=== PATIENT | male | born 1950 | race Caucasian/White ===

== ENCOUNTER → 2016-08-07 | Outpatient (CLI) | payer OTHER ==
[~2016-08-07] MED LIST: CRD200 PO; DILT240C57 PO; GLCSR/500 PO; INSDGI SC; LISI20TA55 PO; LSN/2025 PO; OXYC5TAB PO; PRVC/40 PO; WARF3TAB PO; WARF5TAB90 PO
== END ==
LOC: C.LAB 09:11
PROVIDERS: ATTEND Family Medicine
DX: C34.90 Malignant neoplasm of unspecified part of unspecified bronchus or lung (principal)

== ENCOUNTER → 2016-10-03 | Outpatient (CLI) | payer OTHER ==
--- NOTE | 2016-10-03 13:35 | DIAGNOSTIC IMAGING REPORT ---
PET/CT CLINICAL HISTORY: Lung cancer. COMPARISON STUDY: Chest CT dated 12/29/[address] dated 12/03/2015. TECHNIQUE: One hour following the IV administration of 11.62 mCi of F-18 FDG, PET/CT examination was performed from the orbital meatal line through the bony pelvis. Noncontrast CT is performed for the purposes of anatomic correlation and attenuation correction. Note that this does not reflect a diagnostic CT examination. Images were reviewed on a separate [employer] independent workstation. Fused images were obtained. Standard uptake values reported are maximum values within the region of interest expressed in gm/mL. FINDINGS: PET FINDINGS: Head and neck: There is expected physiologic activity within the visualized brain parenchyma at the skull base and the salivary glands. Thorax: Evaluation of the thorax demonstrates expected physiologic myocardial activity. No FDG avid pulmonary lesion is identified. There is no evidence of FDG mediastinal or hilar lymphadenopathy. Abdomen and pelvis: There is expected activity within the liver, spleen, kidneys, renal collecting system, and bladder. Low-level bowel activity is likely within physical limits. 2 left adrenal nodules are unchanged and measure up to 2.[address] criteria for a fat-containing adenoma. This shows only low level FDG activity with a maximum velocity of 2.0. Unenhanced CT images: Right temporal encephalomalacia suggests remote intracranial insult. The paranasal sinuses are clear as imaged. The mastoid air cells appear well-pneumatized. The bony orbits are grossly intact. Orbital contents are normal as imaged noting bilateral ocular lens implants. A punctate sialolith is noted in the left parotid gland. The salivary and thyroid glands are otherwise normal as visualized. There is atherosclerotic calcification of the thoracic aorta which is normal in caliber. The heart is mildly enlarged and without pericardial effusion. The coronary arteries are calcified. No axillary lymphadenopathy is seen. Emphysema is noted. There are postoperative changes from right lower lobe pulmonary resection. Trace pleural fluid is seen at the right lung base. No airspace consolidation is identified typical for pneumonia. Scarring is present in the right posterior lung. A calcified granuloma is seen at the left lung base. No concerning pulmonary lesion is seen. The gallbladder surgically absent. There is mild intrahepatic biliary ductal dilatation and pneumobilia. The unenhanced liver is otherwise grossly normal in appearance. The unenhanced spleen, pancreas, and right adrenal gland are grossly normal. The kidneys demonstrate cortical atrophy and are without hydronephrosis. There is advanced atherosclerotic calcification of the abdominal aorta. Findings suggest history of aortic bypass. A fat-containing umbilical hernia contains nonobstructed loops of small bowel. There is mild dilatation of the proximal small bowel loops suggesting low-grade obstruction. These loops measure up to 3.0 cm in diameter. Moderate colonic fecal retention is observed. There are additional fat-containing ventral hernia is identified. There is no abdominal, pelvic, or inguinal lymphadenopathy. The bladder, prostate, and seminal vesicles are normal as visualized. Skeletal structures are osteopenic. No lytic or blastic lesions are seen. Mild degenerative changes noted throughout the thoracic spine. Postoperative changes are noted in the right sided ribs. IMPRESSION: 1. Cardiomegaly and emphysema with postoperative changes from right lower lobe pulmonary resection as detailed above. 2. There is no evidence of recurrent or metastatic disease. 3. Trace pleural fluid at the right lung base is likely on a postoperative basis. 4. Umbilical hernia contains nonobstructed loops of small bowel. There is mild dilatation of the upstream small bowel loops suggesting some degree of low-grade obstruction. Clinical correlation will be required. 5. There is right temporal lobe encephalomalacia, likely related to a remote insult. 6. 2 left adrenal nodules are unchanged and need CT criteria for fat-containing adenomas. The larger nodule is mildly FDG avid which is of doubtful significance. 7. Additional changes as above. Electronically signed by: Abundio Mcpherson M.D. 10/03/2016 1:34 PM Dictated Date/Time: 10/03/2016 1:16 PM
== END | disposition home or self-care (01) ==
LOC: C.PET 10:13
PROVIDERS: ATTEND Internal Medicine
DX: C34.90 Malignant neoplasm of unspecified part of unspecified bronchus or lung (principal); I51.7 Cardiomegaly; J43.9 Emphysema, unspecified; K42.9 Umbilical hernia without obstruction or gangrene

== ENCOUNTER 2017-10-21 19:21 | Inpatient (IN) | payer OTHER ==
[~2017-10-21] VITALS: Ht 193 cm; Wt 119.4 kg
[~2017-10-21 19:21] MED LIST changes: +ASPI81TA28 PO; +CEPH500C2 PO; -CRD200 PO; +CYAN10005 PO; +GEMF600T PO; -INSDGI SC; +INSU1INJ SC; -PRVC/40 PO
[2017-10-21] MEDS ORDERED: VANCOMYCIN IV 2,000 MG in SODIUM CHLORIDE 0.9% 500ML 500 ML IV STA (19:28)
[2017-10-21] MEDS ORDERED: CEFTRIAXONE SOD INJ 1 GM ADDVIAL IV STA (19:28)
[2017-10-21] MEDS ORDERED: VANCOMYCIN CONSULT ACTIVE PRN (19:30)
--- NOTE | 2017-10-21 19:34 | EMERGENCY ROOM VISIT NOTE ---
History Report prepared by Alpesh: Delmar Jean Baptiste Under the Supervision of: Dr. Nathanael Bardales M.D. First contact with patient: 19:24 Stated Complaint: LEG SWELLING History of Present Illness The patient is a 66 year old male who presents to the Emergency Room for evaluation of left foot swelling. Rapid swelling over last few days of left foot with increasing redness, drainage and burning sensation. Notes started about 1 month ago but worse last few stovall. History of diabetes with some lower BSG recently. Associated with feeling a bit weak and tired. No fevers, nausea , vomiting, diarrhea, syncope, chest pain, shob, headache, other rashes, calf pain/swelling nor other symptoms. Unable to ambulate due to foot infection. Arrives via EMS. Nothing makes better nor worse. Source of History: patient Onset: 1 month ago Position: leg (left) Quality: burning Timing: worsening Associated Symptoms: + chills, No LOC, No fevers, No nausea, No vomiting, No diarrhea Review of Systems See HPI for pertinent positives & negatives. A total of 10 systems reviewed and were otherwise negative. Past Medical & Surgical Medical Problems: (1) Anemia (2) Atrial flutter (3) Diabetes (4) Hepatitis C (5) High blood pressure (6) Jaundice (7) Lung mass Surgical Problems: (1) Hx of appendectomy (2) Hx of cholecystectomy Family History Patient reports no known family medical history. Social History Smoking Status: Former Smoker Alcohol Use: none Drug Use: marijuana Marital Status: single Housing Status: other (long-term) Occupation Status: other Current/Historical Medications Scheduled Aspirin (Aspirin Ec), 81 MG PO DAILY Cyanocobalamin (Vitamin B-12), 1,000 MCG PO DAILY Diltiazem Hcl (Cardizem), 120 MG PO BID Gemfibrozil (Lopid), 600 MG PO DAILY Insulin Isophan/Regular (Humulin 70/30), 34 UNITS SC QPM Insulin Isophan/Regular (Humulin 70/30), 40 UNITS SC QAM Lisinopril/Hctz (Prinzide 20-25MG), 1 TAB PO HS Metformin Hcl (Glucophage), 1,000 MG PO BID Warfarin Sodium (Coumadin), 5 MG PO HS Warfarin Sodium (Coumadin), 3 MG PO HS Scheduled PRN Polyvinyl Alcohol (Artificial Tears), 1 DROP OPL QID PRN for Dryness Allergies Coded Allergies: Povidone Iodine (Verified Allergy, Severe, RASH, 04/27/16) Adhesives (Verified Adverse Reaction, Unknown, RASH, 04/20/16) Physical Exam Vital Signs Date Time Temp Pulse Resp B/P (MAP) Pulse Ox O2 Delivery O2 Flow Rate FiO2 10/21/17 23:00 95 18 121/64 94 Room Air 10/21/17 21:00 75 118/43 93 Room Air 10/21/17 19:34 36.7 86 96 Physical Exam GENERAL: Patient is in long-term garb, well appearing and in no acute distress. EYES: No scleral icterus, unremarkable pupils. ENT: Mucous membranes moist, no nasal congestion. NECK: No masses appreciated, no meningismus, trachea is midline. RESPIRATORY: No dyspnea. Clear to auscultation and equal bilaterally. No wheeze , no rhonchi. CARDIOVASCULAR: Regular rate and rhythm. No murmurs, rubs, gallops appreciated. GASTROINTESTINAL: Abdomen soft, nontender, no peritonitis. Bowel sounds positive. No masses appreciated. BACK: No midline tenderness, no CVA tenderness EXTREMITIES: Wound of left foot with swelling and erythema. Minimal sensation of left foot (chronic). White decreased vascularized area of distal pad with sloughing of skin and ulceration to base of toes. Weeping open gangrenous wounds with malodorous stench. Normal motion all extremities, no cyanosis, no edema. NEUROLOGIC: Alert and oriented, no acute motor or sensory deficits, no focal weakness, cranial nerves grossly intact. SKIN: No rash, no jaundice, no diaphoresis. Medical Decision & Procedures ER Provider Diagnostic Interpretation: Radiology results and stated below per my review and radiologist interpretation: SINGLE VIEW CHEST CLINICAL HISTORY: Foot infection. Weakness and chills. FINDINGS: An AP, portable, upright chest radiograph is compared to study dated 04/28/2016. Correlation is made with PET/CT dated 10/03/2016. The examination is severely degraded by portable technique , large body habitus, and patient rotation. The heart is enlarged and there is atherosclerotic calcification of the thoracic aorta. The pulmonary vasculature is noncongested. Emphysema and chronic interstitial thickening are similar to previous. Postoperative change and volume loss are consistent with a right-sided pulmonary resection. No airspace consolidation or pleural effusion is identified. No pneumothorax is seen. The skeletal structures are osteopenic. The bony thorax is grossly intact. IMPRESSION: 1. No acute cardiopulmonary abnormality. 2. Cardiomegaly, emphysema, and postoperative change from right-sided pulmonary resection as above. Electronically signed by: Abundio Mcpherson M.D. 10/21/2017 8:28 PM Dictated Date/Time: 10/21/2017 8:26 PM LEFT FOOT 3 VIEWS CLINICAL HISTORY: Foot infection. FINDINGS: 3 portable views of the left foot are obtained. No prior studies are available for comparison at the time of dictation. The skeletal structures are osteopenic. No fracture is seen. There is erosive change and cortical destruction/fragmentation seen involving the head and distal shaft of the first proximal phalanx. Erosive change is also suggested at the base of the first distal phalanx. Overlying soft tissue edema is noted in the appearance is highly concerning for osteomyelitis. Erosive change is also suggested in the head of the fourth proximal phalanx and the fourth middle phalanx with small for safe cortical disruption. There are small dorsal and plantar calcaneal enthesophytes. Spurring is seen along the dorsal aspect of the talus. Diffuse soft tissue edema is present throughout the foot. There is atherosclerotic calcification of the regional arteries. No radiodense foreign body is identified. IMPRESSION: 1. Findings are consistent with osteomyelitis involving the distal aspect of the first proximal phalanx, and also likely the base of the first distal phalanx. 2. Diffuse soft tissue edema is consistent with cellulitis. This is greatest in the first toe. 3. Mild erosive change with foci of cortical disruption are also suggested involving the fourth proximal and middle phalanges as above. This may also represent osteomyelitis. Electronically signed by: Abundio Mcpherson M.D. 10/21/2017 9:08 PM Dictated Date/Time: 10/21/2017 9:04 PM Laboratory Results 10/21/17 19:54 Red Blood Count 3.14, Mean Corpuscular Volume 87.6, Mean Corpuscular Hemoglobin 30.6, Mean Corpuscular Hemoglobin Concent 34.9, Mean Platelet Volume 10.0, Neutrophils (%) (Auto) 80.4, Lymphocytes (%) (Auto) 10.4, Monocytes (%) (Auto) 6.9, Eosinophils (%) (Auto) 1.8, Basophils (%) (Auto) 0.2, Neutrophils # (Auto) 10.07, Lymphocytes # (Auto) 1.30, Monocytes # (Auto) 0.86, Eosinophils # (Auto) 0.22, Basophils # (Auto) 0.02 10/21/17 19:54 Test 10/21/17 19:54 10/21/17 19:56 White Blood Count 12.51 K/uL (4.8-10.8) Red Blood Count 3.14 M/uL (4.7-6.1) Hemoglobin 9.6 g/dL (14.0-18.0) Hematocrit 27.5 % (42-52) Mean Corpuscular Volume 87.6 fL (80-100) Mean Corpuscular Hemoglobin 30.6 pg (25-34) Mean Corpuscular Hemoglobin Concent 34.9 g/dl (32-36) Platelet Count 415 K/uL (130-400) Mean Platelet Volume 10.0 fL (7.4-10.4) Neutrophils (%) (Auto) 80.4 % Lymphocytes (%) (Auto) 10.4 % Monocytes (%) (Auto) 6.9 % Eosinophils (%) (Auto) 1.8 % Basophils (%) (Auto) 0.2 % Neutrophils # (Auto) 10.07 K/uL (1.4-6.5) Lymphocytes # (Auto) 1.30 K/uL (1.2-3.4) Monocytes # (Auto) 0.86 K/uL (0.11-0.59) Eosinophils # (Auto) 0.22 K/uL (0-0.5) Basophils # (Auto) 0.02 K/uL (0-0.2) RDW Standard Deviation 43.7 fL (36.4-46.3) RDW Coefficient of Variation 13.5 % (11.5-14.5) Immature Granulocyte % (Auto) 0.3 % Immature Granulocyte # (Auto) 0.04 K/uL (0.00-0.02) Prothrombin Time 10.7 SECONDS (9.0-12.0) Prothromb Time International Ratio 1.0 (0.9-1.1) Activated Partial Thromboplast Time 30.2 SECONDS (21.0-31.0) Partial Thromboplastin Ratio 1.2 Anion Gap 10.0 mmol/L (3-11) Estimated GFR () 43.8 Estimated GFR (Non- 37.8 BUN/Creatinine Ratio 20.6 (10-20) Calcium Level 9.6 mg/dl (8.5-10.1) C-Reactive Protein 17.90 mg/dl (0-0.29) Bedside Lactic Acid Venous 0.97 mmol/L (0.90-1.70) Laboratory results as reviewed by me. Medications Administered Medications (Trade) Dose Ordered Sig/Eros Route Start Time Stop Time Status Last Admin Dose Admin Vancomycin HCl 2000 mg/Sodium Chloride 540 ml @ 200 mls/hr ONE STAT IV 10/21/17 19:28 10/21/17 22:09 DC 10/21/17 20:33 200 MLS/HR Ceftriaxone Sodium (Rocephin Inj) 1 gm NOW STAT IV 10/21/17 19:28 10/21/17 19:31 DC 10/21/17 20:13 1 GM ECG Per My Interpretation Indication: other (left foot infection) Rate (beats per minute): 80 Rhythm: normal sinus Findings: PVC (occasional), no acute ischemic change, other (QTc of 445) ED Course 1923: The patient was evaluated in room B2. A complete history and physical exam was performed. 2155: Discussed the patient's case with Dr. Meraz. The patient will be evaluated for further treatment and disposition. 2199: Upon reevaluation, the patient is resting. Discussed results and treatment plan with the patient. He verbalized understanding and agreement with the treatment plan. The patient will be evaluated for further management. Medical Decision 66 yr old male arrives from long-term for evaluation of left foot infection. Clearly osteo of toes and infected foot with sloughing of skin. He is not overtly septic but is clearly in need of admission and IV abx and likely surgical removal of his toes and possibly foot. Of note Hgb has dropped which hospitalist was able to review that patient has had some blood in stool and they will work this up further. He was given broad spectrum abx for foot wound as diabetic, from care home and previous loss of leg from infections. Medication Reconcilliation Current Medication List: was personally reviewed by me Blood Pressure Screening Patient's blood pressure: Low blood pressure Blood pressure disposition: Did not require urgent referral Consults Time Called: 2149 Consulting Physician: Dr. Meraz Returned Call: [phone] Discussed the patient's case. The patient will be evaluated for further treatment and disposition. Impression Primary Impression: Osteomyelitis of ankle or foot, left, acute Additional Impression: Cellulitis Scribe Attestation The scribe's documentation has been prepared under my direction and personally reviewed by me in its entirety. I confirm that the note above accurately reflects all work, treatment, procedures, and medical decision making performed by me. Departure Information Dispostion Being Evaluated By Hospitalist Referrals Masha PALACIOS (PCP) Problem Qualifiers
--- NOTE | 2017-10-21 20:29 | DIAGNOSTIC IMAGING REPORT ---
SINGLE VIEW CHEST CLINICAL HISTORY: Foot infection. Weakness and chills. FINDINGS: An AP, portable, upright chest radiograph is compared to study dated 04/28/2016. Correlation is made with PET/CT dated 10/03/2016. The examination is severely degraded by portable technique , large body habitus, and patient rotation. The heart is enlarged and there is atherosclerotic calcification of the thoracic aorta. The pulmonary vasculature is noncongested. Emphysema and chronic interstitial thickening are similar to previous. Postoperative change and volume loss are consistent with a right-sided pulmonary resection. No airspace consolidation or pleural effusion is identified. No pneumothorax is seen. The skeletal structures are osteopenic. The bony thorax is grossly intact. IMPRESSION: 1. No acute cardiopulmonary abnormality. 2. Cardiomegaly, emphysema, and postoperative change from right-sided pulmonary resection as above. Electronically signed by: Abundio Mcpherson M.D. 10/21/2017 8:28 PM Dictated Date/Time: 10/21/2017 8:26 PM
[2017-10-21 20:32] LABS: BASO % 0.2 %; BASO ABS # 0.02 K/uL (0-0.2); EOS % 1.8 %; EOS ABS # 0.22 K/uL (0-0.5); HEMATOCRIT 27.5 % (42-52); HEMOGLOBIN 9.6 g/dL (14.0-18.0); IG# 0.04 K/uL (0.00-0.02); LYMPH % 10.4 %; MEAN CELL VOLUME 87.6 fL (80-100); MEAN CORPUSCULAR HEMOGLOBIN 30.6 pg (25-34); MEAN CORPUSCULAR HGB CONC 34.9 g/dl (32-36); MONO % 6.9 %; MONO ABS # 0.86 K/uL (0.11-0.59); NEUT % 80.4 %; NEUT ABS # 10.07 K/uL (1.4-6.5); PLATELET COUNT 415 K/uL (130-400); RED CELL DISTRIBUTION WIDTH CV 13.5 % (11.5-14.5); RED CELL DISTRIBUTION WIDTH SD 43.7 fL (36.4-46.3); WHITE BLOOD COUNT 12.51 K/uL (4.8-10.8)
[2017-10-21 20:50] LABS: PTT PATIENT 30.2 SECONDS (21.0-31.0)
[2017-10-21 20:55] LABS: BLOOD UREA NITROGEN 37 mg/dl (7-18); CALCIUM 9.6 mg/dl (8.5-10.1); CARBON DIOXIDE 26 mmol/L (21-32); GLUCOSE 147 mg/dl (70-99); SODIUM 133 mmol/L (136-145)
[2017-10-21 21:04] LABS: POTASSIUM 4.2 mmol/L (3.5-5.1)
--- NOTE | 2017-10-21 21:09 | DIAGNOSTIC IMAGING REPORT ---
LEFT FOOT 3 VIEWS CLINICAL HISTORY: Foot infection. FINDINGS: 3 portable views of the left foot are obtained. No prior studies are available for comparison at the time of dictation. The skeletal structures are osteopenic. No fracture is seen. There is erosive change and cortical destruction/fragmentation seen involving the head and distal shaft of the first proximal phalanx. Erosive change is also suggested at the base of the first distal phalanx. Overlying soft tissue edema is noted in the appearance is highly concerning for osteomyelitis. Erosive change is also suggested in the head of the fourth proximal phalanx and the fourth middle phalanx with small for safe cortical disruption. There are small dorsal and plantar calcaneal enthesophytes. Spurring is seen along the dorsal aspect of the talus. Diffuse soft tissue edema is present throughout the foot. There is atherosclerotic calcification of the regional arteries. No radiodense foreign body is identified. IMPRESSION: 1. Findings are consistent with osteomyelitis involving the distal aspect of the first proximal phalanx, and also likely the base of the first distal phalanx. 2. Diffuse soft tissue edema is consistent with cellulitis. This is greatest in the first toe. 3. Mild erosive change with foci of cortical disruption are also suggested involving the fourth proximal and middle phalanges as above. This may also represent osteomyelitis. Electronically signed by: Abundio Mcpherson M.D. 10/21/2017 9:08 PM Dictated Date/Time: 10/21/2017 9:04 PM
[2017-10-21] MEDS ORDERED: DILT120T8 PO (22:29)
[2017-10-21] MEDS ORDERED: POLY99.0 OPL (22:29)
[2017-10-21] MEDS ORDERED: INSU1INJ SC (22:29)
[2017-10-21] MEDS ORDERED: METF-384 PO (22:29)
[2017-10-21] MEDS ORDERED: ONDANSETRON INJ 2 MG/ML 2 ML VIAL IV PRN (22:45)
[2017-10-21] MEDS ORDERED: POLYETHYLENE (MIRALAX) 17 GM PACK PO PRN (22:45)
[2017-10-21] MEDS ORDERED: ACETAMINOPHEN 325 MG TAB PO PRN (22:45)
[2017-10-21] MEDS ORDERED: ALUMINUM/MAGNESIUM/SIMETH (MAALOX MAX) 30 ML UDC PO PRN (22:45)
[2017-10-21] MEDS ORDERED: ARTIFICIAL TEARS OP SOLN OPL PRN (22:45)
[2017-10-21] MEDS ORDERED: HEPARIN SOD 5000 UNIT/0.5 ML CARP SQ SCH (22:45)
[2017-10-21] MEDS ORDERED: ZOLPIDEM TARTRATE 5 MG TAB PO PRN (22:45)
[2017-10-21] MEDS ORDERED: MAGNESIUM HYDROXIDE SUSP 30 ML UDC PO PRN (22:45)
--- NOTE | 2017-10-21 23:50 | History and Physical ---
History & Physical Date & Time of Service: Oct 21, 2017 at 22:34 Chief Complaint: Leg Swelling Primary Care Physician: Masha PALACIOS History of Present Illness Source: patient, hospital records 66 y/o M complex medical history including HTN, HPL, A flutter, DM, PAD, R BKA, chronic LLE ulcers. Presenting from a local [facility] with worsening LLE cellulitis and a related foul odor, at the behest of the [facility] nursing staff. He is a resident of a correctional facility and had last followed up at a wound clinic 10/09. He denies a fever or excessive pain, however, his sensation is impaired peripherally. Initial labs are notable for leukocytosis, anemia and MYNOR. Imaging is consistent with osteomyelitis involving the 1st and 4th phalanges with adjacent soft tissue cellulitis. On further questioning, the pt states that he has had both dark and bright red blood with every BM for approximately one month. He denies SOB, lightheadedness , diarrhea or abdominal pain. 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 Not aware of any pertinent family history Social History Quit smoking 18 years ago - resides in an incarceration facility Smoking Status: Former Smoker Drug Use: marijuana Marital Status: single Housing status: other Occupational Status: other Allergies Coded Allergies: Povidone Iodine (Verified Allergy, Severe, RASH, 04/27/16) Adhesives (Verified Adverse Reaction, Unknown, RASH, 04/20/16) Home Medications Scheduled Aspirin (Aspirin Ec), 81 MG PO DAILY Cyanocobalamin (Vitamin B-12), 1,000 MCG PO DAILY Diltiazem Hcl (Cardizem), 120 MG PO BID Gemfibrozil (Lopid), 600 MG PO DAILY Insulin Isophan/Regular (Humulin 70/30), 34 UNITS SC QPM Insulin Isophan/Regular (Humulin 70/30), 40 UNITS SC QAM Lisinopril/Hctz (Prinzide 20-25MG), 1 TAB PO HS Metformin Hcl (Glucophage), 1,000 MG PO BID Warfarin Sodium (Coumadin), 5 MG PO HS Warfarin Sodium (Coumadin), 3 MG PO HS Scheduled PRN Polyvinyl Alcohol (Artificial Tears), 1 DROP OPL QID PRN for Dryness Review of Systems Constitutional: No fever, No chills, No sweats Eyes: No worsening of vision ENT: No hearing loss, No unusual epistaxis Respiratory: No cough, No sputum, No wheezing Cardiovascular: No chest pain, No orthopnea, No PND Abdomen: + GI bleeding, No pain, No nausea, No vomiting Musculoskeletal: No joint pain Genitourinary - Male: No hematuria, No dysuria Neurologic: No memory loss, No paralysis, No weakness Psychiatric: No depression symptoms Endocrine: No fatigue Hematologic / Lymphatic: + abnormal bleeding/bruising Integumentary: + rash, + new/changing skin lesions Physical Exam Vital Signs Date Time Temp Pulse Resp B/P (MAP) Pulse Ox O2 Delivery O2 Flow Rate FiO2 10/21/17 21:00 75 118/43 93 Room Air 10/21/17 19:34 36.7 86 96 General Appearance: WD/WN, no apparent distress Head: normocephalic Eyes: normal inspection ENT: normal ENT inspection, pharynx normal Neck: supple, no JVD Respiratory/Chest: chest non-tender, lungs clear, normal breath sounds Cardiovascular: regular rate, rhythm, no edema Abdomen/GI: normal bowel sounds, non tender, soft Back: normal inspection, no CVA tenderness Extremities/Musculoskelatal: + pertinent finding (R BKA - LLE erythema, skin sloughing, deep wounds over mid and 1st toes) 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, no motor/sensory deficits, alert, oriented x 3 Skin: + pertinent finding (LLE erythema, skin sloughing, deep wounds over mid and 1st toes) Diagnostics Laboratory Results Results Past 24 Hours Test 10/21/17 19:54 10/21/17 19:56 Range/Units White Blood Count 12.51 4.8-10.8 K/uL Red Blood Count 3.14 4.7-6.1 M/uL Hemoglobin 9.6 14.0-18.0 g/dL Hematocrit 27.5 42-52 % Mean Corpuscular Volume 87.6 80-100 fL Mean Corpuscular Hemoglobin 30.6 25-34 pg Mean Corpuscular Hemoglobin Concent 34.9 32-36 g/dl Platelet Count 415 130-400 K/uL Mean Platelet Volume 10.0 7.4-10.4 fL Neutrophils (%) (Auto) 80.4 % Lymphocytes (%) (Auto) 10.4 % Monocytes (%) (Auto) 6.9 % Eosinophils (%) (Auto) 1.8 % Basophils (%) (Auto) 0.2 % Neutrophils # (Auto) 10.07 1.4-6.5 K/uL Lymphocytes # (Auto) 1.30 1.2-3.4 K/uL Monocytes # (Auto) 0.86 0.11-0.59 K/uL Eosinophils # (Auto) 0.22 0-0.5 K/uL Basophils # (Auto) 0.02 0-0.2 K/uL RDW Standard Deviation 43.7 36.4-46.3 fL RDW Coefficient of Variation 13.5 11.5-14.5 % Immature Granulocyte % (Auto) 0.3 % Immature Granulocyte # (Auto) 0.04 0.00-0.02 K/uL Prothrombin Time 10.7 9.0-12.0 SECONDS Prothromb Time International Ratio 1.0 0.9-1.1 Activated Partial Thromboplast Time 30.2 21.0-31.0 SECONDS Partial Thromboplastin Ratio 1.2 Sodium Level 133 136-145 mmol/L Potassium Level 4.2 3.5-5.1 mmol/L Chloride Level 97 98-107 mmol/L Carbon Dioxide Level 26 21-32 mmol/L Anion Gap 10.0 3-11 mmol/L Blood Urea Nitrogen 37 7-18 mg/dl Creatinine 1.80 0.60-1.40 mg/dl Estimated GFR () 43.8 Estimated GFR (Non- 37.8 BUN/Creatinine Ratio 20.6 10-20 Random Glucose 147 70-99 mg/dl Calcium Level 9.6 8.5-10.1 mg/dl C-Reactive Protein 17.90 0-0.29 mg/dl Bedside Lactic Acid Venous 0.97 0.90-1.70 mmol/L Microbiology Results 10/21/17 Blood Culture, Received Pending 4/9/18 Blood Culture, Received Pending Diagnostic Radiology XR foot: 1. Findings are consistent with osteomyelitis involving the distal aspect of the first proximal phalanx, and also likely the base of the first distal phalanx. 2. Diffuse soft tissue edema is consistent with cellulitis. This is greatest in the first toe. 3. Mild erosive change with foci of cortical disruption are also suggested involving the fourth proximal and middle phalanges as above. This may also represent osteomyelitis. EKG Sinus, PACs Impression Assessment and Plan 66 y/o M complex medical history including HTN, HPL, A flutter, DM, PAD, R BKA, chronic LLE ulcers. Presenting from a local [facility] with worsening LLE cellulitis and a related foul odor, at the [facility]hest of the [facility]. He is a resident of a correctional facility and had last followed up at a wound clinic 10/09. He denies a fever or excessive pain, however, his sensation is impaired peripherally. Initial labs are notable for leukocytosis, anemia and MYNOR. Imaging is consistent with osteomyelitis involving the 1st and 4th phalanges with adjacent soft tissue cellulitis. On further questioning, the pt states that he has had both dark and bright red blood with every BM for approximately one month. 1) Osteomyelitis and cellulitis of distal LLE - the pt will be placed on Cefepime and Vancomycin pending culture results and evaluation by the orthopedic service. There appears to be at least one area of severe bone erosion which may require surgical intervention and he may indeed require amputation or partial amputation of the involved phalanges. 2) Anemia - admits to [facility] bleed for approximately one month. We will trend Hb, guaiac stool and consult GI. Transfusion consent obtained on admission. ASA and Coumadin are held - it is noted that his INR was 1.0 on arrival and he had not complied with Coumadin for a few weeks. 3) MYNOR - last available lab dates to 01/2017 and reveals normal renal function. We will provide IVF and trend BMP. May need a nephrology consult if no improvement is observed. 4) DM - placed on a SS 5) Paroxysmal flutter - Cont Diltiazem - has not complied with Coumadin which has been held regardless due to bleeding 6) HTN - HCTZ/Lisin held due to MYNOR - PRN Hydralazine provided 7) HPL - Lopid held as he is on a clear diet 8) Due to anemia and MYNOR, the pt cannot be considered optimized for surgery at present. Full code - Chem prophylaxis held due to anemia Total time for this admit including review of labs, meds, imaging, records - discussion with pt and ER attending - 45 min Resuscitation Status VTE Prophylaxis Will order VTE Prophylaxis: No Reason for no VTE drug order: Contraindicated Reason no Mechanical VTE Order: Contraindicated
[2017-10-22] MEDS ORDERED: DEXTROSE 50% 50 ML SYR IV PRN (00:15)
[2017-10-22] MEDS ORDERED: GLUCAGON FOR INJ 1 MG VIAL SQ PRN (00:15)
[2017-10-22] MEDS ORDERED: GLUCOSE 40% GEL 15 GM TUBE PO PRN (00:15)
[2017-10-22] MEDS ORDERED: GLUCOSE 10 TABS/TUBE PO PRN (00:15)
[2017-10-22] MEDS ORDERED: VANCOMYCIN CONSULT ACTIVE PRN (00:15)
[2017-10-22 00:50] VITALS: BP 156/70; PULSE 108; TEMP 36.8; O2SAT 96
[2017-10-22 01:00] VITALS: BMI 30.4
[2017-10-22] MEDS ORDERED: PATIENT'S HEIGHT AND/OR WEIGHT NEEDED SCH (01:00)
[2017-10-22] MEDS: SODIUM CHLORIDE 0.9% 1000ML 1,000 ML IV SCH ×2 (01:18→07:32)
[2017-10-22] MEDS ORDERED: NURSING VERBAL MED ORDER ONE (01:30)
[2017-10-22] MEDS: CEFEPIME IV 1,000 MG in SYRINGE 0 ML IV SCH ×3 (05:56→21:26)
[2017-10-22] MEDS: INSULIN ASPART 100 UNITS/ML 3 ML PEN SC SCH ×3 (05:59→18:26)
[2017-10-22] MEDS ORDERED: INSULIN ASPART 100 UNITS/ML 3 ML PEN SC SCH (07:00)
[2017-10-22 07:35] VITALS: BP 145/81; PULSE 106; TEMP 37; O2SAT 97
[2017-10-22 07:43] LABS: CALCIUM 9.7 mg/dl (8.5-10.1); CREATININE 1.52 mg/dl (0.60-1.40); POTASSIUM 3.9 mmol/L (3.5-5.1)
[2017-10-22] MEDS ORDERED: ASPIRIN 81 MG ECTAB PO SCH (09:00)
[2017-10-22] MEDS ORDERED: VANCOMYCIN IV 1,000 MG in SODIUM CHLORIDE 0.9% 250ML 250 ML IV SCH (09:00)
[2017-10-22] MEDS ORDERED: GEMFIBROZIL 600 MG TAB PO SCH (09:00)
[2017-10-22] MEDS: CYANOCOBALAMIN 500 MCG TAB (VIT B-12) PO SCH (09:09)
[2017-10-22] MEDS: DILTIAZEM HCL 60 MG TAB PO SCH ×2 (09:09→21:27)
[2017-10-22] MEDS: VANCOMYCIN IV 1,750 MG in SODIUM CHLORIDE 0.9% 500ML 500 ML IV SCH ×2 (09:11→21:26)
--- NOTE | 2017-10-22 09:51 | Hospitalist Progress Note ---
Hospitalist Progress Note Date of Service Oct 22, 2017. (Karishma Ly CRNP) Subjective Pt evaluation today including: conversation w/ patient, physical exam, chart review Voiding: no voiding problems Mr. Flores is having shooting pains in his left foot extending up his leg when he moves it but otherwise pain level is tolerable. He has not had a bowel movement since he came to the hospital, but he describes bright red blood in his stool without melena. He is not chronically constipated and does not have hemorrhoids that he is aware of. He also has had a loss of appetite over the last month but is not sure if he has lost weight, no nausea or vomiting. He has also had a dry cough for about a month, but no other associated URI symptoms, he is not sob. ROS Constitutional: no chills, aches, sweats or fever Respiratory: see HPI Cardiac: no chest pain, palpitations, edema, orthopnea or lightheadedness GI: no abdominal pain, diarrhea, or constipation : no dysuria or hesitancy Extremities: no joint pain or weakness Skin: no rash All other systems reviewed and negative (Karishma Ly .CHRIS) Medications Medications Administered Medications (Trade) Dose Ordered Sig/Eros Route Start Time Stop Time Status Last Admin Dose Admin Vancomycin HCl 2000 mg/Sodium Chloride 540 ml @ 200 mls/hr ONE STAT IV 10/21/17 19:28 10/21/17 22:09 DC 10/21/17 20:33 200 MLS/HR Ceftriaxone Sodium (Rocephin Inj) 1 gm NOW STAT IV 10/21/17 19:28 10/21/17 19:31 DC 10/21/17 20:13 1 GM Cyanocobalamin (Vitamin B-12 Tab) 1,000 mcg DAILY PO 10/22/17 09:00 11/21/17 08:59 10/22/17 09:09 1,000 MCG Diltiazem HCl (Cardizem Tab) 120 mg BID PO 10/22/17 09:00 11/21/17 08:59 10/22/17 09:09 120 MG Sodium Chloride 1,000 ml @ 150 mls/hr Q6H40M IV 10/22/17 01:00 10/22/17 14:19 10/22/17 07:32 150 MLS/HR Cefepime HCl 1000 mg/Syringe 11 ml @ 5.5 mls/min Q8H IV 10/22/17 06:00 11/01/17 05:59 10/22/17 05:56 5.5 MLS/MIN Miscellaneous Information (Patient'S Height And/Or Weight Needed) 1 ea Q30M N/A 10/22/17 01:00 10/22/17 01:22 DC 10/22/17 01:20 1 EA Insulin Aspart (novoLOG ASPART) SLIDING SCALE G... Q6 SC 10/22/17 06:00 11/21/17 05:59 10/22/17 05:59 2 UNITS Vancomycin HCl 1750 mg/Sodium Chloride 535 ml @ 200 mls/hr Q12H IV 10/22/17 09:00 12/03/17 08:59 10/22/17 09:11 200 MLS/HR (Karishma Ly CRNP) Objective Vital Signs Date Time Temp Pulse Resp B/P (MAP) Pulse Ox O2 Delivery O2 Flow Rate FiO2 10/22/17 07:35 37.0 106 18 145/81 (102) 97 Room Air 10/22/17 01:02 Room Air 10/22/17 01:00 Room Air 10/22/17 00:50 36.8 108 18 156/70 (98) 96 Room Air 10/22/17 00:06 36.8 98 18 134/75 95 10/21/17 23:00 95 18 121/64 94 Room Air 10/21/17 21:00 75 118/43 93 Room Air 10/21/17 19:34 36.7 86 96 (Karishma Ly CRNP) Physical Exam Notes: General: no distress Eyes: normal inspection, PERLL Respiratory: chest non tender, clear to auscultation, normal breath sounds, no respiratory distress, no accessory muscle use Cardiac: regular rate and rhythm, no rub or gallop, no murmur, no edema, no jvd GI/: active bowel sounds, no abd pain or tenderness, soft, non distended Extremities: normal range of motion, normal strength, non tender Neuro/Psych: alert and oriented x 3, normal mood and affect Skin: normal color, dry, left lower extremity edematous with open area between third and fourth toes, flaking skin and brown discoloration of ankle (Karishma Ly ., CHRIS) Laboratory Results Last 24 Hours Test 10/21/17 19:54 10/21/17 19:56 10/22/17 00:34 10/22/17 00:53 White Blood Count 12.51 K/uL Red Blood Count 3.14 M/uL Hemoglobin 9.6 g/dL 9.8 g/dL Hematocrit 27.5 % Mean Corpuscular Volume 87.6 fL Mean Corpuscular Hemoglobin 30.6 pg Mean Corpuscular Hemoglobin Concent 34.9 g/dl Platelet Count 415 K/uL Mean Platelet Volume 10.0 fL Neutrophils (%) (Auto) 80.4 % Lymphocytes (%) (Auto) 10.4 % Monocytes (%) (Auto) 6.9 % Eosinophils (%) (Auto) 1.8 % Basophils (%) (Auto) 0.2 % Neutrophils # (Auto) 10.07 K/uL Lymphocytes # (Auto) 1.30 K/uL Monocytes # (Auto) 0.86 K/uL Eosinophils # (Auto) 0.22 K/uL Basophils # (Auto) 0.02 K/uL RDW Standard Deviation 43.7 fL RDW Coefficient of Variation 13.5 % Immature Granulocyte % (Auto) 0.3 % Immature Granulocyte # (Auto) 0.04 K/uL Prothrombin Time 10.7 SECONDS Prothromb Time International Ratio 1.0 Activated Partial Thromboplast Time 30.2 SECONDS Partial Thromboplastin Ratio 1.2 Sodium Level 133 mmol/L Potassium Level 4.2 mmol/L Chloride Level 97 mmol/L Carbon Dioxide Level 26 mmol/L Anion Gap 10.0 mmol/L Blood Urea Nitrogen 37 mg/dl Creatinine 1.80 mg/dl Estimated GFR () 43.8 Estimated GFR (Non- 37.8 BUN/Creatinine Ratio 20.6 Random Glucose 147 mg/dl Calcium Level 9.6 mg/dl C-Reactive Protein 17.90 mg/dl Bedside Lactic Acid Venous 0.97 mmol/L Bedside Glucose 157 mg/dl Test 10/22/17 05:53 10/22/17 06:53 Bedside Glucose 217 mg/dl Hemoglobin 11.1 g/dL Sodium Level 134 mmol/L Potassium Level 3.9 mmol/L Chloride Level 101 mmol/L Carbon Dioxide Level 26 mmol/L Anion Gap 7.0 mmol/L Blood Urea Nitrogen 38 mg/dl Creatinine 1.52 mg/dl Est Creatinine Clear Calc Drug Dose 64.0 ml/min Estimated GFR () 53.8 Estimated GFR (Non- 46.4 BUN/Creatinine Ratio 25.0 Random Glucose 214 mg/dl Calcium Level 9.7 mg/dl Magnesium Level 1.9 mg/dl (Karishma Ly .CHRIS) Assessment and Plan 66 y/o M complex medical history including HTN, HPL, A flutter, DM, PAD, R BKA, chronic LLE ulcers. Presenting from a local [facility] with worsening LLE cellulitis and a related foul odor, at the behest of the long term nursing staff. He is a resident of a correctional facility and had last followed up at a wound clinic 10/09. Imaging is consistent with osteomyelitis involving the 1st and 4th phalanges with adjacent soft tissue cellulitis. Osteomyelitis and cellulitis of distal LLE \ - continue Cefepime and Vancomycin pending culture results and evaluation by the orthopedic service - consulted orthopedics - may need to involve vascular surgery depending on orthopedics consult - BC pending - cbc am Anemia - admits to [facility] bleed for approximately one month. - Hgb today is up to 11.1 from 9.6, no further bleeding since admission - awaiting guaiac stool - consulted GI - ASA and Coumadin held - patient had not been taking coumadin for about a month and INR was 1.0 at admission. He states he just felt like switching to ASA MYNOR - last available lab dates to 01/2017 and reveals normal renal function. - continue IVF - Creat improved today to 1.52 from from 1.8 - prp am DM - SS, bsgs ac & hs Paroxysmal flutter - Cont Diltiazem -- coumadin and ASA held as above HTN - continue to hold HCTZ/Lisin for now for MYNOR - PRN Hydralazine HPL - Lopid held as he is NPO Anemia has improved, however continued MYNOR means that the patient cannot be considered optimized for surgery at present. Full code - Chem prophylaxis held due to anemia Full code (Karishma Ly CRNP) Supervising Note Dr. Cates I performed a history and physical examination on the patient. I reviewed above note and agree with it. I discussed plan with APC and patient. During my face to face encounter with the patient, I answered all of the patient's questions. Awaiting ortho input. Patient will likely need MRI to further assess osteomyelitis. (Edward Cates M.D.)
[2017-10-22] MEDS ORDERED: HydrALAZINE HCL 20 MG/ML VIAL IV. PRN (10:00)
--- NOTE | 2017-10-22 14:41 | Pharmacy Progress Note ---
Pharmacy Abx Dose Short Note Date of Service Oct 22, 2017. Assessment & Plan Assessment * 66 year old male receiving IV Vancomycin/Cefepime for treatment of osteomyelitis * Imaging is consistent with osteomyelitis involving the 1st and 4th phalanges with adjacent soft tissue cellulitis. * PMH is significant for DM, PAD, R BKA, chronic LLE ulcers, Hepatitis C, lung adenocarcinoma s/p RLL lobectomy. [facility] is a [facility]. * SCr elevated on admission, but appears to be improving (SCr 1.8 --> 1.52). Item Value Date Time Blood Culture Received 10/21/172004 Blood Pending Blood Culture Received 10/21/171953 Blood Pending Plan Vancomycin * Vancomycin 2000mg IV x1 dose in the ED, then * Vancomycin 1750mg IV q12h * Goal trough level for osteomyelitis: 18 to 22 mcg/mL * Trough level ordered for: 10/23 @0830, prior to the 3rd maintenance dose * this will NOT YET represent steady-state level (but want to ensure that vanc is being dosed adequately for osteo) Cefepime 1gm IV q8h -- not a pharmacy consult Pharmacy will continue to follow and will adjust dose/frequency as necessary. Thank you.
[2017-10-22 15:08] VITALS: BP 150/82; PULSE 99; TEMP 36.9; O2SAT 97
[2017-10-22 16:00] VITALS: O2SAT 97
--- NOTE | 2017-10-22 16:49 | ORTHOPEDIC CONSULTATION ---
DATE OF ADMISSION: 10/21/2017 HISTORY OF PRESENT ILLNESS: The patient is a 66-year-old white male who presents with multiple medical issues including hypertension, diabetes, right below knee amputation, chronic lower extremity ulcers. He is currently incarcerated. He has had worsening left lower extremity cellulitis with purulent drainage. His clinical examination reveals there to be evidence of fourth toe with purulent drainage. He has had x-rays which revealed to be some lucencies involving the proximal phalanx as well. Wound care has apparently been consulted. The wound itself has a foul smelling purulent drainage from the wound on the dorsal aspect of his toe between his fourth and fifth toes. We will discuss this case with Dr. Montes. The patient is questioning amputation part of his foot than prior to making decisions. We will talk with Dr. Montes regarding intraoperative vascular studies that may need to be done to determine a viable level. We will follow with you.
--- NOTE | 2017-10-22 18:42 | GASTROINTESTINAL CONSULTATION ---
DATE OF CONSULTATION: 10/22/2017 This is a gastrology inpatient consultation note. CHIEF COMPLAINT: Hematochezia x1 month. HISTORY OF PRESENT ILLNESS: Mr. Flores is a 66-year-old white male who reports a 1-2 month history of change in bowel habits with constipation, straining, rectal bleeding which is mostly bright red blood per rectum, although occasionally maroon colored. There is no abdominal pain associated with this. The patient never had a colonoscopy and is not aware of a family history of colorectal cancer or inflammatory bowel disease. Patient denies any prior diarrhea. He is unaware that he has anemia, although on admission, his hemoglobin was 9.6 and has been stable since admission. He has an extensive past medical history including common bile duct stones, hepatitis C, type 2 diabetes, chronic diabetic foot wounds with a right BKA. Patient is also admitted for significant cellulitis in the left extremity from the pretibial area down to the lower extremity digits. There is also report of infection and osteomyelitis in the bone with soft tissue cellulitis. Patient denies any hematemesis, coffee-ground emesis, diarrhea or melena. In addition, the patient also has a history of a left adrenal adenoma, right lower lobe adenocarcinoma, peripheral artery disease and triple A repair. Patient also had a cholecystectomy, appendectomy and a prior biliary stent placed. ALLERGIES: PATIENT IS ALLERGIC TO IODINE-POVIDONE AND ADHESIVES. SOCIAL HISTORY: The patient denies tobacco use but quit nearly 2 decades ago, does occasionally use marijuana. He denies alcoholic beverages. He is single. CURRENT HOME MEDICATIONS: Include aspirin, B12, diltiazem, gemfibrozil, insulin, lisinopril/hydrochlorothiazide, metformin and warfarin. REVIEW OF SYSTEMS: Otherwise noncontributory based on 13-point exam except for mentioned above. CURRENT MEDICATIONS IN THE HOSPITAL: Include hydralazine, B12, diltiazem, vancomycin 1750 mg q. 12, cefepime, insulin, zolpidem, Zofran, p.r.n. meds. PHYSICAL EXAMINATION: GENERAL: Patient is awake, alert and oriented x3. HEENT: The sclerae are anicteric, conjunctivae moist. Oral mucosa moist. HEART: Normal S1, S2. LUNGS: Clear to auscultation without rales, rhonchi or wheezes. ABDOMEN: Soft, flat, nontender, nondistended with good bowel sounds. Patient is obese. EXTREMITIES: Show a right BKA and a left cellulitis involving from the pretibial mid lower extremity area down to the distal phalanges with congestion, erythema, edema. LABORATORY STUDIES: Include on admission, white count 12.5, hemoglobin today is 9.9. Serum chemistries, potassium on admission 3.9, BUN 38 and 1.52, glucose are in the 200 range. INR 1.0. IMAGING: Foot and chest x-ray from yesterday showed osteomyelitis in the distal aspect of the first proximal phalanx, diffuse soft tissue edema consistent with cellulitis, most prevalent in the great toe. IMPRESSION AND PLAN: Patient with report of constipation, straining bright red blood per rectum with no significant weight loss over the past 6 weeks or so. Patient has never had a colonoscopy. At the present time, the patient is currently not on anticoagulation and if the primary team is agreeable, we can plan for a colonoscopy on . This will require a bowel preparation. Would maintain a low-fiber diet tonight and begin a bowel preparation tomorrow afternoon. All questions answered. Patient is agreeable to undergoing colonoscopy.
--- NOTE | 2017-10-22 23:12 | DIAGNOSTIC IMAGING REPORT ---
L ANKLE BRACHIAL INDEX LIMITED HISTORY: 66 years-old Male r/o occlusive dz LLE peripheral vascular disease. History of right [id number]-blle amputation. COMPARISON: None available TECHNIQUE: LISA of the lower extremities FINDINGS/IMPRESSION: The left posterior tibial and dorsalis pedis arteries are noncompressible and therefore pressures were unable to be obtained. Audio Engineer reports that the toe pressures were unable to be obtained secondary to patient condition. The above report was generated using voice recognition software. It may contain grammatical, syntax or spelling errors. Electronically signed by: Lenny Morrell M.D. 10/22/2017 11:11 PM Dictated Date/Time: 10/22/2017 11:09 PM
[2017-10-22 23:57] VITALS: BP 123/60; PULSE 90; TEMP 37.5; O2SAT 91
[2017-10-23] MEDS: CEFEPIME IV 1,000 MG in SYRINGE 0 ML IV SCH ×3 (06:04→22:41)
[2017-10-23] MEDS: INSULIN ASPART 100 UNITS/ML 3 ML PEN SC SCH ×6 (06:04→21:00)
[2017-10-23 07:05] VITALS: BP 173/68; PULSE 100; TEMP 36.8; O2SAT 97
[2017-10-23] MEDS ORDERED: OXYCODONE HCL IR 5 MG TAB (IMMEDIATE RELEASE) PO PRN (08:15)
[2017-10-23] MEDS ORDERED: VANCOMYCIN TROUGH ONE (08:30)
[2017-10-23 08:46] LABS: HEMATOCRIT 28.9 % (42-52); HEMOGLOBIN 9.9 g/dL (14.0-18.0); MEAN CORPUSCULAR HEMOGLOBIN 29.8 pg (25-34); MEAN CORPUSCULAR HGB CONC 34.3 g/dl (32-36); MEAN PLATELET VOLUME 9.5 fL (7.4-10.4); PLATELET COUNT 461 K/uL (130-400); RED CELL DISTRIBUTION WIDTH CV 13.7 % (11.5-14.5); RED CELL DISTRIBUTION WIDTH SD 44.1 fL (36.4-46.3); WHITE BLOOD COUNT 13.65 K/uL (4.8-10.8)
[2017-10-23] MEDS: MoRPHine SULFATE 2 MG/ML CARP IV PRN (08:52)
[2017-10-23] MEDS: DILTIAZEM HCL 60 MG TAB PO SCH ×2 (08:54→21:21)
[2017-10-23] MEDS: CYANOCOBALAMIN 500 MCG TAB (VIT B-12) PO SCH (08:54)
[2017-10-23] MEDS ORDERED: NURSING VERBAL MED ORDER ONE ×2 (09:00→21:15)
[2017-10-23] MEDS: VANCOMYCIN IV 1,750 MG in SODIUM CHLORIDE 0.9% 500ML 500 ML IV SCH (09:11)
[2017-10-23 09:20] LABS: CALCIUM 9.5 mg/dl (8.5-10.1); CREATININE 1.26 mg/dl (0.60-1.40)
[2017-10-23] MEDS ORDERED: [UNRECOGNIZED DRUG - REMARK] ONE (10:30)
--- NOTE | 2017-10-23 10:46 | Pharmacy Progress Note ---
Pharmacy Abx Dose Progress Nt Date of Service Oct 23, 2017. Pharmacy Dosing Scope The patient is currently receiving the following antimicrobial agents per Pharmacy consult: Vancomycin 1750 mg IV every 12 hours Objective Height (Feet): 6 Height (Inches): 4.00 Weight (Kilograms): 113.200 (BMI = 30) Vital Signs (Past 12Hrs) Vital Signs Past 12 Hours Date Time Temp Pulse Resp B/P (MAP) Pulse Ox O2 Delivery O2 Flow Rate FiO2 10/23/17 07:30 Room Air 10/23/17 07:05 36.8 100 20 173/68 (103) 97 Room Air 10/23/17 00:03 Room Air 10/22/17 23:57 37.5 90 15 123/60 (81) 91 Room Air Lab Results (24Hrs) Laboratory Tests (24 Hours) Test 10/23/17 08:34 White Blood Count 13.65 K/uL (4.8-10.8) H Micro Results Date/Time Source Procedure Growth Status 10/21/17 20:05 Blood Blood Culture - Preliminary NO GROWTH TO DATE. Resulted 10/21/17 19:54 Blood Blood Culture - Preliminary NO GROWTH TO DATE. Resulted Risk Factors for Resistance * Resident in a jail or extended-care facility Assessment & Plan Assessment 10/22/17 * 66 year old male receiving IV Vancomycin/Cefepime for treatment of osteomyelitis * Imaging is consistent with osteomyelitis involving the 1st and 4th phalanges with adjacent soft tissue cellulitis. * PMH is significant for DM, PAD, R BKA, chronic LLE ulcers, Hepatitis C, lung adenocarcinoma s/p RLL lobectomy. Patient is a longterm resident. * SCr elevated on admission, but appears to be improving (SCr 1.8 --> 1.52). 10/23/17 * Today is day #3 of vancomycin/ day #2 of cefepime * Afebrile, WBC count still slightly elevated * Ortho has been consulted and patient is questioning possible foot amputation * SCr improved further today (1.8 -> 1.5 -> 1.26) Plan Vancomycin IV * Trough level of 24.1 mcg/mL is supratherapeutic * Spoke with nurse and entered order to STOP currently hanging vancomycin dose ~ 1.25 hrs into infusion * New est PK: Vd ~ 0.6 L/kg, True 0.064, t1/2 10.8 hrs * Change to 1500 mg (13.3 mg/kg) IV every 12 hours - start at 2100 tonight, when I expect level to fall to ~18 after slightly less than 1/2 of vanc dose infused * Goal trough level for osteo : 15 to 20 mcg/mL * Trough level ordered for: 10/25/17 prior to the 0900 dose * Less than traditional dose and/or extended dosing interval selected due to likelihood of drug accumulation in obese patient/CKD. Cefepime * Not dosed by pharmacy - skin/skin structure indication can be dosed at 2 gm q12h Pharmacy will continue to follow and will adjust dose/frequency as necessary. Thank you.
--- NOTE | 2017-10-23 12:53 | Hospitalist Progress Note ---
Hospitalist Progress Note Date of Service Oct 23, 2017. (Karishma Ly ., CHRIS) Subjective Pt evaluation today including: conversation w/ patient, physical exam, chart review, lab review, review of inpatient medication list Voiding: no voiding problems Mr. Flores is having pain in his infected foot. He is unsure if his bowel movement this morning had any blood in it. He continues to have a mild non productive cough. He otherwise has no complaints. ROS Constitutional: no chills, aches, sweats or fever Respiratory: no sputum, or wheezing Cardiac: no chest pain, palpitations, edema, orthopnea or lightheadedness GI: no abdominal pain, nausea, vomiting, diarrhea or constipation : no dysuria or hesitancy Extremities: see HPI Skin: no rash All other systems reviewed and negative (Karishma Ly CRNP) Medications Medications Administered Medications (Trade) Dose Ordered Sig/Eros Route Start Time Stop Time Status Last Admin Dose Admin Vancomycin HCl 2000 mg/Sodium Chloride 540 ml @ 200 mls/hr ONE STAT IV 10/21/17 19:28 10/21/17 22:09 DC 10/21/17 20:33 200 MLS/HR Ceftriaxone Sodium (Rocephin Inj) 1 gm NOW STAT IV 10/21/17 19:28 10/21/17 19:31 DC 10/21/17 20:13 1 GM Cyanocobalamin (Vitamin B-12 Tab) 1,000 mcg DAILY PO 10/22/17 09:00 11/21/17 08:59 10/23/17 08:54 1,000 MCG Diltiazem HCl (Cardizem Tab) 120 mg BID PO 10/22/17 09:00 11/21/17 08:59 10/23/17 08:54 120 MG Sodium Chloride 1,000 ml @ 150 mls/hr Q6H40M IV 10/22/17 01:00 10/22/17 14:19 DC 10/22/17 07:32 150 MLS/HR Cefepime HCl 1000 mg/Syringe 11 ml @ 5.5 mls/min Q8H IV 10/22/17 06:00 11/01/17 05:59 10/23/17 06:04 5.5 MLS/MIN Miscellaneous Information (Patient'S Height And/Or Weight Needed) 1 ea Q30M N/A 10/22/17 01:00 10/22/17 01:22 DC 10/22/17 01:20 1 EA Insulin Aspart (novoLOG ASPART) SLIDING SCALE G... Q6 SC 10/22/17 06:00 10/23/17 09:06 DC 10/23/17 06:04 3 UNITS Vancomycin HCl 1750 mg/Sodium Chloride 535 ml @ 200 mls/hr Q12H IV 10/22/17 09:00 10/23/17 10:24 DC 10/23/17 09:11 200 MLS/HR Morphine Sulfate (MoRPHine SULFATE INJ) 2 mg Q4H PRN IV 10/23/17 08:15 11/06/17 08:14 10/23/17 08:52 2 MG Insulin Aspart (novoLOG ASPART) SLIDING SCALE G... ACHS SC 10/23/17 12:00 11/22/17 11:59 10/23/17 09:44 2 UNITS Miscellaneous (Stop Order) 1 ea ONE ONCE N/A 10/23/17 10:30 10/23/17 10:31 DC 10/23/17 10:40 1 EA (Karishma Ly CRNP) Objective Vital Signs Date Time Temp Pulse Resp B/P (MAP) Pulse Ox O2 Delivery O2 Flow Rate FiO2 10/23/17 07:30 Room Air 10/23/17 07:05 36.8 100 20 173/68 (103) 97 Room Air 10/23/17 00:03 Room Air 10/22/17 23:57 37.5 90 15 123/60 (81) 91 Room Air 10/22/17 16:00 97 Room Air 10/22/17 15:08 36.9 99 16 150/82 (104) 97 Room Air (Karishma Ly TEMPLATE CHECKER) Physical Exam Notes: General: no distress Eyes: normal inspection, PERLL Respiratory: chest non tender, clear to auscultation, normal breath sounds, no respiratory distress, no accessory muscle use Cardiac: regular rate and rhythm, no rub or gallop, no murmur, no edema, no jvd GI/: active bowel sounds, no abd pain or tenderness, soft, non distended Extremities: normal range of motion, normal strength, non tender Neuro/Psych: alert and oriented x 3, normal mood and affect Skin: left lower extremity with flaking skin and skin discoloration around ankle , edematous, open area between third and fourth toes (Karishma Ly, CHRIS) Laboratory Results Last 24 Hours Test 10/22/17 17:59 10/22/17 23:55 10/23/17 05:47 10/23/17 08:34 Bedside Glucose 204 mg/dl 225 mg/dl 250 mg/dl White Blood Count 13.65 K/uL Red Blood Count 3.32 M/uL Hemoglobin 9.9 g/dL Hematocrit 28.9 % Mean Corpuscular Volume 87.0 fL Mean Corpuscular Hemoglobin 29.8 pg Mean Corpuscular Hemoglobin Concent 34.3 g/dl RDW Standard Deviation 44.1 fL RDW Coefficient of Variation 13.7 % Platelet Count 461 K/uL Mean Platelet Volume 9.5 fL Sodium Level 136 mmol/L Potassium Level 4.0 mmol/L Chloride Level 103 mmol/L Carbon Dioxide Level 25 mmol/L Anion Gap 9.0 mmol/L Blood Urea Nitrogen 31 mg/dl Creatinine 1.26 mg/dl Est Creatinine Clear Calc Drug Dose 77.3 ml/min Estimated GFR () 67.5 Estimated GFR (Non- 58.2 BUN/Creatinine Ratio 24.4 Random Glucose 223 mg/dl Calcium Level 9.5 mg/dl Vancomycin Level Trough 24.1 mcg/ml Test 10/23/17 08:44 Bedside Glucose 237 mg/dl (Karishma Ly CRNP) Assessment and Plan 66 y/o M complex medical history including HTN, HPL, A flutter, DM, PAD, R BKA, chronic LLE ulcers. Presenting from a local longterm with worsening LLE cellulitis and a related foul odor, at the behest of the [facility] nursing staff. He is a resident of a correctional facility and had last followed up at a wound clinic 10/09. Imaging is consistent with osteomyelitis involving the 1st and 4th phalanges with adjacent soft tissue cellulitis. Osteomyelitis and cellulitis of distal LLE \ - continue Cefepime and Vancomycin - consulted orthopedics - may need to involve vascular surgery depending on orthopedics consult - BC ngtd - cbc am Anemia - admits to LGI bleed for approximately one month. - Hgb stable around 9.9, no further bleeding since admission - consulted GI - clears today and then npo after mn for colonoscopy tomorrow - ASA and Coumadin held - patient had not been taking Coumadin for about a month and INR was 1.0 at admission. He states he just felt like switching to ASA MYNOR - last available lab dates to 01/2017 and reveals normal renal function. - continue IVF - Creat improved today to 1.52 from from 1.26 - prp am DM - blood sugars running in the 200s - tightened ss and added lantus - continue bsgs ac & hs Paroxysmal flutter - Cont Diltiazem -- coumadin and ASA held as above HTN - continue to hold HCTZ/Lisin for now for MYNOR - can probably restart tomorrow after colonoscopy - PRN Hydralazine HPL - Lopid held as he is NPO - can restart tomorrow after colonoscopy Full code - Chem prophylaxis held due to anemia (Karishma Ly, CHRIS) Supervising Note Dr. Cates I performed a history and physical examination on the patient. I reviewed above note and agree with it. I discussed plan with APC and patient. During my face to face encounter with the patient, I answered all of the patient's questions. Awaiting MRI of lower extremity. Patient has been afebrile and mildly elevated HR in 90s. Will continue to monitor. Continue vanco cefepime (Edward Cates M.D.)
[2017-10-23] MEDS ORDERED: INSULIN GLARGINE SOLOSTAR 100 UNITS/ML 3 ML PEN SC ONE (13:00)
--- NOTE | 2017-10-23 14:32 | DIAGNOSTIC IMAGING REPORT ---
LEFT LOWER EXTREMITY ARTERIAL DUPLEX STUDY CLINICAL HISTORY: ulcers of left foot COMPARISON STUDY: None. FINDINGS: The ABIs were unable to be obtained. Scattered calcified plaque throughout the arterial system. Normal velocities and biphasic waveforms seen within the left common femoral and profunda femoris artery. Monophasic waveform seen within the mid to distal superficial femoral artery, popliteal artery, and calf arteries. Normal velocities within the left superficial femoral artery. Elevated peak systolic velocity within the distal left popliteal artery of 216 cm/s. This is consistent with an area of stenosis. Borderline elevated peak systolic within the left peroneal artery of 139 cm/s and left posterior tibial artery of 133 cm/s. No significant stenosis identified within the left anterior tibial, posterior tibial or dorsalis pedis arteries. IMPRESSION: 1. Focal area of hemodynamically significant stenosis seen within the distal left popliteal artery. 2. Borderline areas of stenosis within the left peroneal and left posterior tibial arteries. Electronically signed by: Conor Herrera M.D. 10/23/2017 2:31 PM Dictated Date/Time: 10/23/2017 2:27 PM
--- NOTE | 2017-10-23 15:01 | Surgery Consultation ---
Consultation Date of Service Oct 23, 2017. Chief Complaint LLE PAD, foot infection History of Present Illness The patient is a 66 year old male with multiple medical problems, including HTN , DMII, venous insufficiency, hx of RLE BKA 4 yr ago, admitted for L foot infection, seen in consultation today for same. Pt admits pain in LLE, requesting BKA d/t pain. Does not ambulate, but uses L foot for transfers and wheelchair mobility. States he had L foot wounds x 2 months. Denies fever, chills, chest pain, SOB,abd pain, N/V, claudication, other complaints. Vitals Vital Signs Past 12 Hours Date Time Temp Pulse Resp B/P (MAP) Pulse Ox O2 Delivery O2 Flow Rate FiO2 10/23/17 07:30 Room Air 10/23/17 07:05 36.8 100 20 173/68 (103) 97 Room Air Allergies Coded Allergies: Povidone Iodine (Verified Allergy, Severe, RASH, 04/27/16) Adhesives (Verified Adverse Reaction, Unknown, RASH, 04/20/16) Home Medications Scheduled Aspirin (Aspirin Ec), 81 MG PO DAILY Cyanocobalamin (Vitamin B-12), 1,000 MCG PO DAILY Diltiazem Hcl (Cardizem), 120 MG PO BID Gemfibrozil (Lopid), 600 MG PO DAILY Insulin Isophan/Regular (Humulin 70/30), 34 UNITS SC QPM Insulin Isophan/Regular (Humulin 70/30), 40 UNITS SC QAM Lisinopril/Hctz (Prinzide 20-25MG), 1 TAB PO HS Metformin Hcl (Glucophage), 1,000 MG PO BID Warfarin Sodium (Coumadin), 5 MG PO HS Warfarin Sodium (Coumadin), 3 MG PO HS Scheduled PRN Polyvinyl Alcohol (Artificial Tears), 1 DROP OPL QID PRN for Dryness Problem List Medical Problems: (1) Anemia (2) Atrial flutter (3) Diabetes (4) Hepatitis C (5) High blood pressure (6) Jaundice (7) Lung mass Surgical Problems: (1) Hx of appendectomy (2) Hx of cholecystectomy Surgical / Medical History Hx Cardiac Surgery: No Hx Abdominal Surgery: Yes (Appendectomy, AAA 2007, Gaulbladder 2007) Hx Cancer Surgery: Yes (R Vats with R lower lobectomy, medistinal lymphadenectomy ) Hx Thoracic Surgery: No Hx Orthopedic: Yes (Rt BKA 2013 ) Hx Urinary Tract Surgery: Yes (Removal of stones ) HX Other Surgery: Yes (Bilary stents, bilateral cataracts ) Past Medical/Surgical History: Diabetes, Hypertension, Kidney Disease Family History Patient reports no known family medical history. Social History Smoking Status: Former Smoker Hx Tobacco Use In Past Year?: No Hx Alcohol Use - Type & Amnt: No Hx Substance Use -Type & Amnt: No Review of Systems Constitutional: No chills, No fever, No malaise Skin: + change in color Eyes: No visual changes ENMT: No sore throat Respiratory: No cough, No HARRIS, No hemoptysis, No short of breath Cardiovascular: + edema, No chest pain, No palpitations, No syncope, No intermittent claudication Gastrointestinal: No abdominal pain, No diarrhea, No nausea, No vomiting Neurologic: No dizziness, No headache, No numbness, No tingling Physical Exam Constitutional: General Apperance: well-nourished, well-developed, obese Level of Distress: NAD, chronically ill Psychiatric: Mental Status: active & alert, normal mood, normal affect Orientation: oriented except where noted, to time, to place, to person Memory: recent memory normal, remote memory normal Head: normocephalic, atraumatic Eyes: EOM: EOMI ENMT: normal ENT inspection, hearing grossly normal Neck: supple, trachea midline Lungs: Respiratory effort: no dyspnea Auscultation: breath sounds normal, no rales/crackles, no rhonchi Cardiovascular: Heart Auscultation: no rubs, no gallops Peripheral Pulses: Pulses: full and equal, in all extremities except if noted Bruits: none appreciated Carotid Pulse: normal on the left, normal on the right Brachial Pulses: normal on the left, normal on the right Radial Pulse: normal on the left, normal on the right Femoral Pulse: normal on the left, normal on the right Posterior Tibialis Pulse: pertinent finding (LLE nonpalpable, RLE BKA) Dorsalis Pedis Pulse: pertinent finding (L foot nonpalpable, RLE BKA) Abdomen: Bowel Sounds: normal Inspection & Palpation: soft, non-distended, no tenderness, guarding & rebound Musculoskeletal: normal strength (5/5 throughout), normal tone Extremities: Upper Right: no cyanosis, no edema, no varicosities Upper Left: no cyanosis, no edema, no varicosities Lower Right: pertinent finding (BKA) Lower Left: pertinent finding (malodorous, purulent discharge from L foot/ toes area, significant edema, erythema, warmth.) Assessment and Plan ASSESSMENT and PLAN: LLE foot infection PAD US reviewed by Dr Landis, recommends LLE angio d/t popliteal lesion IF pt undergoing foot procedure(debridement or TMA). IF pt to have LLE BKA, no vascular surgical intervention recommended as profunda flow is adequate. Would have ortho perform foot procedure first, then schedule for angio if necessary. Will discuss with ortho and reeval tomorrow.
[2017-10-23 15:39] VITALS: BP 151/65; PULSE 100; TEMP 36.8; O2SAT 98
[2017-10-23] MEDS ORDERED: LAVAGE SOLUTION 4000ML PO SCH (16:00)
--- NOTE | 2017-10-23 16:39 | Orthopedic Progress Note ---
Orthopedic Progress Note Date of Service Oct 23, 2017. Subjective Reports: feeling well Additional Notes: Pt lying in bed. Some pain in the foot but no worse than before. Objective dressings intact with mild drainage note. odor noted. Venous stasis changes noted. Continued drainage from the 4th toe region. Date Time Temp Pulse Resp B/P (MAP) Pulse Ox O2 Delivery O2 Flow Rate FiO2 10/23/17 07:30 Room Air 10/23/17 07:05 36.8 100 20 173/68 (103) 97 Room Air 10/23/17 00:03 Room Air 10/22/17 23:57 37.5 90 15 123/60 (81) 91 Room Air 10/22/17 16:00 97 Room Air Laboratory Results 24 Hours: Test 10/23/17 08:34 Hematocrit 28.9 % Hemoglobin 9.9 g/dL Additional Notes: [~ rep ct add3]] LEFT LOWER EXTREMITY ARTERIAL DUPLEX STUDY CLINICAL HISTORY: ulcers of left foot COMPARISON STUDY: None. FINDINGS: The ABIs were unable to be obtained. Scattered calcified plaque throughout the arterial system. Normal velocities and biphasic waveforms seen within the left common femoral and profunda femoris artery. Monophasic waveform seen within the mid to distal superficial femoral artery, popliteal artery, and calf arteries. Normal velocities within the left superficial femoral artery. Elevated peak systolic velocity within the distal left popliteal artery of 216 cm/s. This is consistent with an area of stenosis. Borderline elevated peak systolic within the left peroneal artery of 139 cm/s and left posterior tibial artery of 133 cm/s. No significant stenosis identified within the left anterior tibial, posterior tibial or dorsalis pedis arteries. IMPRESSION: 1. Focal area of hemodynamically significant stenosis seen within the distal left popliteal artery. 2. Borderline areas of stenosis within the left peroneal and left posterior tibial arteries. Last 24 Hours Test 10/22/17 17:59 10/22/17 23:55 10/23/17 05:47 10/23/17 08:34 Bedside Glucose 204 mg/dl 225 mg/dl 250 mg/dl White Blood Count 13.65 K/uL Red Blood Count 3.32 M/uL Hemoglobin 9.9 g/dL Hematocrit 28.9 % Mean Corpuscular Volume 87.0 fL Mean Corpuscular Hemoglobin 29.8 pg Mean Corpuscular Hemoglobin Concent 34.3 g/dl RDW Standard Deviation 44.1 fL RDW Coefficient of Variation 13.7 % Platelet Count 461 K/uL Mean Platelet Volume 9.5 fL Sodium Level 136 mmol/L Potassium Level 4.0 mmol/L Chloride Level 103 mmol/L Carbon Dioxide Level 25 mmol/L Anion Gap 9.0 mmol/L Blood Urea Nitrogen 31 mg/dl Creatinine 1.26 mg/dl Est Creatinine Clear Calc Drug Dose 77.3 ml/min Estimated GFR () 67.5 Estimated GFR (Non- 58.2 BUN/Creatinine Ratio 24.4 Random Glucose 223 mg/dl Calcium Level 9.5 mg/dl Vancomycin Level Trough 24.1 mcg/ml Test 10/23/17 08:44 10/23/17 12:04 Bedside Glucose 237 mg/dl 256 mg/dl Assessment & Plan Assessment: Osteomyelitis of left great toe on xray. Open draining ulceration at 4th toe with 4 toe blackened PAD; venous stasis dz with h/o right BKA Mildly increasing WBC count (1) Anemia (2) Atrial flutter (3) Diabetes (4) Hepatitis C (5) High blood pressure (6) Jaundice (7) Lung mass Plan: Discussed plan with Vascular service. Pt has lesion at popliteal artery but no plans for angio until foot has been debrided. MRI has been ordered to assess extent of osteomyelitis. Pt slated for colonoscopy tomorrow as well due to anemia and h/o blood in stools Dr Pérez will assess MRI and make recommendations for surgery. I&D with likely toe amputation(s) vs TMA vs BKA
--- NOTE | 2017-10-23 16:54 | GASTROENTEROLOGY PROGRESS NOTE ---
DATE: 10/23/2017 This is a gastroenterology inpatient progress note. SUBJECTIVE: Chart reviewed, patient examined. Patient being treated for osteomyelitis and cellulitis of the left extremity, has a right BKA. Patient has a history of diabetes. Tentative plan is for colonoscopy tomorrow with bowel prep later today. The patient has been on clear liquids today. The patient has never had a colonoscopy. LABORATORY STUDIES: His laboratory studies today show that the hemoglobin is stable at 9.9. His white count is slightly elevated at 13.6, platelets normal. Serum chemistries show normal potassium of 4.0, BUN and creatinine are 31 and 1.26. Sugars remain elevated in the mid 200s. MEDICATIONS: His medications include vancomycin, insulin, oxycodone, hydralazine, B12, diltiazem, cefepime, Tylenol. OBJECTIVE: VITAL SIGNS: Today blood pressure 151/65, respirations 18, heart rate 100, afebrile, 36.8, 98% on room air. GENERAL: Patient is awake, alert and oriented x3. HEENT: Sclerae anicteric, conjunctivae moist. Oral mucosa moist. HEART: Normal S1, S2. LUNGS: Clear to auscultation. ABDOMEN: Obese, nontender, without rebound or guarding. EXTREMITIES: Left lower extremity leg is bandaged, although it shows significant edema with chronic skin changes. The right leg shows a BKA. RECTAL: Deferred. There are positive bowel sounds. IMPRESSION AND PLAN: We will plan for colonoscopy tomorrow with bowel prep this evening. N.p.o. after midnight except meds. All questions answered for the patient.
[2017-10-23] MEDS ORDERED: PHARMACY GLYCEMIC MGMT CONSULT PRN (17:37)
[2017-10-23] MEDS ORDERED: INSULIN HUMAN REGULAR IV BOLUS 10 UNIT in SYRINGE 0 ML IV ONE (18:30)
[2017-10-23] MEDS ORDERED: INSULIN GLARGINE SOLOSTAR 100 UNITS/ML 3 ML PEN SC SCH (21:00)
[2017-10-23 21:01] VITALS: BP 86/41; PULSE 116; TEMP 37.8; O2SAT 95
[2017-10-23] MEDS ORDERED: SODIUM CHLORIDE 0.9% 1000ML 1,000 ML IV STA (21:15)
[2017-10-23 21:31] VITALS: BP 147/84; PULSE 116
[2017-10-23] MEDS: VANCOMYCIN IV 1,500 MG in SODIUM CHLORIDE 0.9% 500ML 500 ML IV SCH (22:41)
[2017-10-23 23:10] VITALS: BP 157/70; PULSE 108; TEMP 37.6; O2SAT 94
[2017-10-24] VITALS (17 sets, daily range): BP systolic 118–162; BP diastolic 53–72; PULSE 78–147; TEMP 36.6–37.6; O2SAT 90–97; BMI 30.4
[2017-10-24] MEDS ORDERED: INSULIN ASPART 100 UNITS/ML 3 ML PEN SC SCH (02:00)
[2017-10-24] MEDS ORDERED: NURSING VERBAL MED ORDER ONE ×2 (03:15→15:40)
[2017-10-24] MEDS: CEFEPIME IV 1,000 MG in SYRINGE 0 ML IV SCH ×3 (05:58→22:23)
[2017-10-24] MEDS: INSULIN ASPART 100 UNITS/ML 3 ML PEN SC SCH ×3 (06:01→18:33)
[2017-10-24 06:46] LABS: HEMATOCRIT 31.2 % (42-52); HEMOGLOBIN 10.6 g/dL (14.0-18.0); MEAN CELL VOLUME 87.4 fL (80-100); MEAN CORPUSCULAR HEMOGLOBIN 29.7 pg (25-34); MEAN PLATELET VOLUME 9.7 fL (7.4-10.4); PLATELET COUNT 494 K/uL (130-400); RED CELL DISTRIBUTION WIDTH CV 13.7 % (11.5-14.5); RED CELL DISTRIBUTION WIDTH SD 44.1 fL (36.4-46.3); WHITE BLOOD COUNT 16.54 K/uL (4.8-10.8)
[2017-10-24 07:10] LABS: CALCIUM 9.1 mg/dl (8.5-10.1); CREATININE 1.23 mg/dl (0.60-1.40); POTASSIUM 3.8 mmol/L (3.5-5.1)
[2017-10-24] MEDS: MoRPHine SULFATE 2 MG/ML CARP IV PRN (07:23)
[2017-10-24] MEDS ORDERED: INSULIN GLARGINE SOLOSTAR 100 UNITS/ML 3 ML PEN SC SCH (09:00)
[2017-10-24] MEDS: DILTIAZEM HCL 60 MG TAB PO SCH ×2 (09:36→21:15)
[2017-10-24] MEDS: VANCOMYCIN IV 1,500 MG in SODIUM CHLORIDE 0.9% 500ML 500 ML IV SCH ×2 (09:37→21:14)
[2017-10-24] MEDS: CYANOCOBALAMIN 500 MCG TAB (VIT B-12) PO SCH (09:37)
[2017-10-24] MEDS: SODIUM CHLORIDE 0.9% 1000ML 1,000 ML IV SCH ×3 (09:38→22:23)
--- NOTE | 2017-10-24 10:35 | DIAGNOSTIC IMAGING REPORT ---
MRI LEFT FOREFOOT COMBO CLINICAL HISTORY: Osteomyelitis. COMPARISON STUDY: Radiographs of left foot dated 10/21/2017. TECHNIQUE: MRI of the left forefoot is performed utilizing various T1 and T2-weighted sequences in the axial, sagittal, coronal planes. Contrast-enhanced sequences were acquired following the IV administration of 11 cc of Gadavist. The examination is degraded by motion artifact. FINDINGS: There is erosive/destructive osseous change seen involving the head of the first proximal phalanx and the base of the first distal phalanx. There is intervening soft tissue thickening and enhancement, the appearance is consistent with osteomyelitis. Similar-appearing marrow changes and destruction are also identified involving the fourth proximal and middle phalanges. This is also consistent with osteomyelitis. No additional similar-appearing marrow changes and destruction are seen involving the remainder of the forefoot. Diffuse subcutaneous soft tissue edema is identified and consistent with cellulitis. No organized fluid collection is seen to suggest abscess. There is nonspecific myositis of the regional musculature. IMPRESSION: 1. Advanced destructive bony change is seen at the first interphalangeal joint, with near complete destruction of the head of the first proximal phalanx. The appearance is consistent with osteomyelitis. 2. There is also evidence of osteomyelitis involving the fourth proximal and middle phalanges. 3. There is evidence of diffuse cellulitis throughout the forefoot. 4. No organized fluid collection is identified to suggest abscess. Dictated: 10/24/2017 9:36 AM Transcribed: 10/24/2017 10:34 AM [facility] Electronically signed by: Abundio Mcpherson M.D. 10/24/2017 10:46 AM Dictated Date/Time: 10/24/2017 9:36 AM
[2017-10-24] MEDS ORDERED: FENTANYL CITRATE INJ 50 MCG/1 ML 2 ML VIAL ONE (12:11)
[2017-10-24] MEDS ORDERED: PROPOFOL IV EMULSION 10 MG/ML 20 ML VIAL IV ONE (12:11)
[2017-10-24] MEDS ORDERED: MIDAZOLAM HCL 1 MG/ML 2ML VIAL ONE (12:11)
[2017-10-24] MEDS ORDERED: LIDOCAINE HCL 2% 2 ML VIAL (20MG/ML) ONE (12:11)
--- NOTE | 2017-10-24 12:38 | History & Physical Bridge Note ---
H&P Re-Evaluation Bridge Note: I have examined the patient, reviewed the History & Physical and in the interval since the performance of the History & Physical I have noted the following changes of clinical significance: No changes noted
--- NOTE | 2017-10-24 12:54 | Hospitalist Progress Note ---
Hospitalist Progress Note Date of Service Oct 24, 2017. Subjective Pt evaluation today including: conversation w/ patient, physical exam, chart review, lab review, review of studies, conversation w/ consumer services consultant, review of inpatient medication list Voiding: no voiding problems Mr. Flores is drowsy today. He reports feeling unwell. Earlier in the day he was getting somewhat tachycardic. He had been doing a bowel prep over the night for colonoscopy and having quite a few bowel movements which did not have blood. ROS Constitutional: no chills, aches, sweats or fever Respiratory: no sob,cough, sputum, or wheezing Cardiac: no chest pain, palpitations, edema, orthopnea or lightheadedness GI: no abdominal pain, nausea, vomiting, : no dysuria or hesitancy Extremities: no joint pain or weakness Skin: no rash All other systems reviewed and negative Medications Medications Administered Medications (Trade) Dose Ordered Sig/Eros Route Start Time Stop Time Status Last Admin Dose Admin Vancomycin HCl 2000 mg/Sodium Chloride 540 ml @ 200 mls/hr ONE STAT IV 10/21/17 19:28 10/21/17 22:09 DC 10/21/17 20:33 200 MLS/HR Ceftriaxone Sodium (Rocephin Inj) 1 gm NOW STAT IV 10/21/17 19:28 10/21/17 19:31 DC 10/21/17 20:13 1 GM Cyanocobalamin (Vitamin B-12 Tab) 1,000 mcg DAILY PO 10/22/17 09:00 11/21/17 08:59 10/24/17 09:37 1,000 MCG Diltiazem HCl (Cardizem Tab) 120 mg BID PO 10/22/17 09:00 11/21/17 08:59 10/24/17 09:36 120 MG Sodium Chloride 1,000 ml @ 150 mls/hr Q6H40M IV 10/22/17 01:00 10/22/17 14:19 DC 10/22/17 07:32 150 MLS/HR Cefepime HCl 1000 mg/Syringe 11 ml @ 5.5 mls/min Q8H IV 10/22/17 06:00 11/01/17 05:59 10/24/17 05:58 5.5 MLS/MIN Miscellaneous Information (Patient'S Height And/Or Weight Needed) 1 ea Q30M N/A 10/22/17 01:00 10/22/17 01:22 DC 10/22/17 01:20 1 EA Insulin Aspart (novoLOG ASPART) SLIDING SCALE G... Q6 SC 10/22/17 06:00 10/23/17 09:06 DC 10/23/17 06:04 3 UNITS Vancomycin HCl 1750 mg/Sodium Chloride 535 ml @ 200 mls/hr Q12H IV 10/22/17 09:00 10/23/17 10:24 DC 10/23/17 09:11 200 MLS/HR Polyethylene Glycol/ Electrolytes (Golytely Soln) 16 dose TODAY@1600 PO 10/23/17 16:00 10/23/17 21:00 DC 10/23/17 16:25 16 DOSE Morphine Sulfate (MoRPHine SULFATE INJ) 2 mg Q4H PRN IV 10/23/17 08:15 11/06/17 08:14 10/24/17 07:23 2 MG Insulin Aspart (novoLOG ASPART) SLIDING SCALE G... ACHS SC 10/23/17 12:00 10/24/17 03:16 DC 10/23/17 18:49 21 UNITS Miscellaneous (Stop Order) 1 ea ONE ONCE N/A 10/23/17 10:30 10/23/17 10:31 DC 10/23/17 10:40 1 EA Vancomycin HCl 1500 mg/Sodium Chloride 530 ml @ 200 mls/hr Q12H IV 10/23/17 21:00 12/02/17 20:59 10/24/17 09:37 200 MLS/HR Insulin Glargine (Lantus Solostar Pen) 10 units BID SC 10/23/17 21:00 10/24/17 07:25 DC 10/23/17 21:30 10 UNITS Insulin Glargine (Lantus Solostar Pen) 20 units NOW ONCE SC 10/23/17 13:00 10/23/17 13:01 DC 10/23/17 13:29 20 UNITS Insulin Human Regular 10 unit/ Syringe 10 ml @ 1 mls/min TODAY@1830 ONCE IV 10/23/17 18:30 10/23/17 18:39 DC 10/23/17 18:47 1 MLS/MIN Insulin Aspart (novoLOG ASPART) SLIDING SCALE G... 0200 SC 10/24/17 02:00 10/24/17 02:01 DC 10/24/17 01:53 3 UNITS Sodium Chloride 1,000 ml @ 999 mls/hr Q1H1M STAT IV 10/23/17 21:15 10/23/17 22:15 DC 10/23/17 21:21 999 MLS/HR Insulin Aspart (novoLOG ASPART) SLIDING SCALE G... Q6 SC 10/24/17 06:00 11/23/17 05:59 10/24/17 06:01 4 UNITS Insulin Glargine (Lantus Solostar Pen) 15 units BID SC 10/24/17 09:00 11/23/17 08:59 10/24/17 09:35 15 UNITS Sodium Chloride 1,000 ml @ 150 mls/hr Q6H40M IV 10/24/17 09:30 11/23/17 09:29 10/24/17 09:38 150 MLS/HR Objective Vital Signs Date Time Temp Pulse Resp B/P (MAP) Pulse Ox O2 Delivery O2 Flow Rate FiO2 10/24/17 12:15 Room Air 10/24/17 12:00 37.6 84 21 158/65 (96) 90 Room Air 10/24/17 10:13 36.8 120 20 96 10/24/17 07:08 120 20 162/53 (89) 10/24/17 07:07 36.8 147 20 135/68 (90) 96 Room Air 10/24/17 07:05 Room Air 10/23/17 23:48 Room Air 10/23/17 23:10 37.6 108 20 157/70 (99) 94 Room Air 10/23/17 21:31 116 147/84 (105) 10/23/17 21:01 37.8 116 26 86/41 (56) 95 Room Air 10/23/17 16:00 Room Air 10/23/17 15:39 36.8 100 18 151/65 (93) 98 Room Air Physical Exam Notes: General: drowsy, unwell appearing Eyes: normal inspection, PERLL Respiratory: chest non tender, clear to auscultation, normal breath sounds, no respiratory distress, no accessory muscle use Cardiac: regular rate and rhythm, no rub or gallop, no murmur, no edema, no jvd GI/: active bowel sounds, no abd pain or tenderness, soft, non distended Extremities: normal range of motion, normal strength, non tender Neuro/Psych: alert and oriented x 3, normal mood and affect Skin: left lower extremity edematous, skin dry and scaly, PVD appearing darkened skin discoloration over ankle Laboratory Results Last 24 Hours Test 10/23/17 16:57 10/23/17 20:57 10/24/17 01:46 10/24/17 05:56 Bedside Glucose 364 mg/dl 162 mg/dl 213 mg/dl 236 mg/dl Test 10/24/17 06:18 10/24/17 07:28 White Blood Count 16.54 K/uL Red Blood Count 3.57 M/uL Hemoglobin 10.6 g/dL Hematocrit 31.2 % Mean Corpuscular Volume 87.4 fL Mean Corpuscular Hemoglobin 29.7 pg Mean Corpuscular Hemoglobin Concent 34.0 g/dl RDW Standard Deviation 44.1 fL RDW Coefficient of Variation 13.7 % Platelet Count 494 K/uL Mean Platelet Volume 9.7 fL Sodium Level 134 mmol/L Potassium Level 3.8 mmol/L Chloride Level 101 mmol/L Carbon Dioxide Level 24 mmol/L Anion Gap 10.0 mmol/L Blood Urea Nitrogen 19 mg/dl Creatinine 1.23 mg/dl Est Creatinine Clear Calc Drug Dose 79.1 ml/min Estimated GFR () 69.5 Estimated GFR (Non- 59.9 BUN/Creatinine Ratio 15.6 Random Glucose 229 mg/dl Calcium Level 9.1 mg/dl Bedside Glucose 213 mg/dl Assessment and Plan 66 y/o M complex medical history including HTN, HPL, A flutter, DM, PAD, R BKA, chronic LLE ulcers. Presenting from a local senior care with worsening LLE cellulitis and a related foul odor, at the behest of the retirement nursing staff. He is a resident of a correctional facility and had last followed up at a wound clinic 10/09. Imaging is consistent with osteomyelitis involving the 1st and 4th phalanges with adjacent soft tissue cellulitis. Osteomyelitis and cellulitis of distal LLE \ - continue Cefepime and Vancomycin - consulted orthopedics - may need to involve vascular surgery depending on orthopedics consult - BC ngtd - cbc am Anemia - admits to LGI bleed for approximately one month. - Hgb stable around 9.9, no further bleeding since admission - consulted GI - clears today and then npo after mn for colonoscopy tomorrow - ASA and Coumadin held - patient had not been taking Coumadin for about a month and INR was 1.0 at admission. He states he just felt like switching to ASA MYNOR - last available lab dates to 01/2017 and reveals normal renal function. - continue IVF - Creat improved today to 1.52 from from 1.26 - prp am DM - blood sugars running in the 200s - tightened ss and added lantus - continue bsgs ac & hs Paroxysmal flutter - Cont Diltiazem -- coumadin and ASA held as above HTN - continue to hold HCTZ/Lisin for now for MYNOR - can probably restart tomorrow after colonoscopy - PRN Hydralazine HPL - Lopid held as he is NPO - can restart tomorrow after colonoscopy Patient's kidney function has returned to normal, hgb stable and no further apparent bleeding, blood pressure and heart rate are stable at this point as the tachycardia has improved though his oxygenation has decreased to 90% on RA. He denies history of heart failure or sleep apnea or pulmonary issues though he does have a lung resection apparent on CXR. At this point I think the necessity of surgery to prevent a full sepsis picture may outweigh the patient' suboptimal condition for surgery, especially given that two days of IV broad spectrum antibiotics have no improved his infection. I did communicate this with surgery. Full code - Chem prophylaxis held due to anemia
--- NOTE | 2017-10-24 14:00 | Pharmacy Progress Note ---
Glycemic Control Intl Consult Date of Service Oct 24, 2017. Scope Glycemic Pharmacist consulted by Dr Cates on 10/23/17 for glycemic control and to write orders per [facility] inpatient glycemic control protocol Objective Weight (Kilograms): 113.200 (BMI = 30) Accuchecks BSG (last 24hrs): Test 10/23/17 16:57 10/23/17 20:57 10/24/17 01:46 10/24/17 05:56 Bedside Glucose 364 mg/dl (70-99) 162 mg/dl (70-99) 213 mg/dl (70-99) 236 mg/dl (70-99) Test 10/24/17 06:18 10/24/17 07:28 10/24/17 12:08 Random Glucose 229 mg/dl (70-99) Bedside Glucose 213 mg/dl (70-99) 225 mg/dl (70-99) Laboratory Data (last 24hrs) Test 10/24/17 06:18 Anion Gap 10.0 mmol/L BUN/Creatinine Ratio 15.6 Blood Urea Nitrogen 19 mg/dl Creatinine 1.23 mg/dl Potassium Level 3.8 mmol/L Sodium Level 134 mmol/L White Blood Count 16.54 K/uL Recent Pertinent Medications Outpatient Anti-diabetic Regimen: * Humulin 70/30 40 units qAM, 34 units qPM * Metformin 1 gm BID * A1c = 11.5 % 04/22/16 The patient is currently receiving: * Basal insulin: Lantus total of 30 units yesterday * Correctional Insulin: Novolog Correction per scale ACHS Goal Range: Low 120 mg/dL - High 160 mg/dL Correction Factor: 20 mg/dL/unit * Prandial insulin: Per carb ratio of 1 unit per 7 grams CHO consumed * Oral Agents: Currently on hold Risk Factors for Insulin Resistance: * Infection: toe osteo - on vanc and cefepime * Diet: NPO for colonoscopy and possible toe amputation today Assessment & Plan ASSESSMENT: * 66 y/o male admitted for toe osteomyelitis. History of type 2 diabetes managed on pre-mixed insulin and metformin as an outpatient. * Pharmacy received the consult for glycemic management last evening and adjustments were made to insulin regimen * He received a total of 66 units of insulin yesterday, with a majority of BSGs being above goal * His PM Lantus was reduced slightly last night since he was going to be NPO after midnight but has remained above goal today * I increased his Lantus this AM but he is still elevated at lunch (currently in the OR) so will plan to increase basal further, with next dose being administered early at dinner * Will also tighten CF. Current CR seemed to work well last night. PLAN FOR INPATIENT GLYCEMIC CONTROL: * Increase Lantus to the following scale BID: (next dose administered w/ dinner) * If BSG less than 120 - 15 units * If BSG 120-160 - 20 units * If BSG > 160 - 25 units * Novolog q6h * Goal 110-150 * TIGHTEN CF to 15 * CR of 7 * Please note that the plan above was derived based on current level of insulin resistance and hospital stress. These recommendations are appropriate for inpatient admission only. Plan of care upon discharge will need to be reassessed to avoid potential outpatient hypo/hyperglycemia. Thank you.
[2017-10-24] MEDS ORDERED: BACITRACIN 50000 UNIT VIAL ONE (14:05)
[2017-10-24] MEDS ORDERED: PHENYLEPHRINE 100MCG/ML 5ML SYR ONE (14:52)
[2017-10-24] MEDS ORDERED: ONDANSETRON INJ 2 MG/ML 2 ML VIAL ONE (14:52)
[2017-10-24] MEDS ORDERED: EpHEDrine SULFATE 50MG/5ML SYR ONE (14:52)
[2017-10-24] MEDS ORDERED: EpHEDrine SULFATE INJ 50 MG/ML AMP IV PRN (15:00)
[2017-10-24] MEDS ORDERED: HYDROmorphone INJ 2 MG/ML SYR/VIAL IV PRN (15:00)
[2017-10-24] MEDS ORDERED: FLUMAZENIL 0.1 MG/1 ML 10 ML VIAL IV PRN (15:00)
[2017-10-24] MEDS ORDERED: PROMETHAZINE HCL INJ 12.5 MG in SODIUM CHLORIDE 0.9% 50ML 50 ML IV PRN (15:00)
[2017-10-24] MEDS ORDERED: ATROPINE SULFATE 0.1 MG/ML 5ML SYR IV PRN (15:00)
[2017-10-24] MEDS ORDERED: ONDANSETRON INJ 2 MG/ML 2 ML VIAL IV PRN (15:00)
[2017-10-24] MEDS ORDERED: NALOXONE HCL 0.4 MG/1 ML VIAL/CARP IV PRN (15:00)
[2017-10-24] MEDS ORDERED: LABETALOL HCL IV 5 MG/ML 20ML IV PRN (15:00)
--- NOTE | 2017-10-24 15:11 | [facility] Operative Report ---
Operative Report Operative Date Oct 24, 2017. Pre-Operative Diagnosis Osteomeyilitis 1ct and 4th toes Post-Operative Diagnosis same Procedure(s) Performed disarticulation 1st and 4th toes Left Surgeon Beto Estimated Blood Loss 50cc Anesthesia Type General Complication(s) none Disposition no Recovery Room / PACU I attest to the content of the Intraoperative Record and any orders documented therein. Any exceptions are noted below.
--- NOTE | 2017-10-24 15:28 | OPERATIVE REPORT ---
DATE OF OPERATION: 10/24/2017 PREOPERATIVE DIAGNOSIS: Osteomyelitis, fourth and first toe, left foot. POSTOPERATIVE DIAGNOSIS: Osteomyelitis, fourth and first toe, left foot. PROCEDURE: Disarticulation of fourth and first toe, left foot. SURGEON: Dr. Pérez. ANESTHESIA: General. COMPLICATIONS: None. OPERATION AND FINDINGS: Following induction of adequate general anesthesia, an ankle tourniquet was placed with an Esmarch bandage and the left leg was prepped and draped in usual sterile manner. The fishmouth incision made over the first proximal phalanx. Sharp dissection was taken down to bone and joint was identified and a disarticulation was carried out. This was removed and reserved on the back table. Next, attention was turned to the 4th toe where there was significant skin maceration. Again a fishmouth incision was made, taking all necrotic skin and soft tissue. The phalanges of proximal and middle were very soft from the osteomyelitis. Disarticulation was carried out here as well. The wounds were thoroughly irrigated with pulsatile irrigation. An area of thickened epidermis was removed revealing intact skin beneath over the pad of the second and third toes. The wounds were left open after irrigation with pulsatile irrigation with bacitracin. Prior to irrigation, both first and fourth toes were cultured. Sterile dressing of Adaptic, fluffs, 4 x 4's, , Kerlix and a 4 inch Pb was applied. The patient tolerated the procedure well. I attest to the content of the Intraoperative Record and any orders documented therein. Any exception s are noted below.
[2017-10-24] MEDS ORDERED: METOPROLOL TARTRATE 1 MG/ML VIAL ONE (15:38)
[2017-10-24] MEDS ORDERED: METOPROLOL TARTRATE 1 MG/ML VIAL IV PRN (16:00)
--- NOTE | 2017-10-24 16:20 | Anesthesiology Progress Note ---
Anesthesia Post Op Note Date & Time Oct 24, 2017 at 16:00 Vital Signs Pain Intensity: 0 Vital Signs Past 12 Hours Date Time Temp Pulse Resp B/P (MAP) Pulse Ox O2 Delivery O2 Flow Rate FiO2 10/24/17 15:50 37.1 88 20 140/71 95 Nasal Cannula 4 10/24/17 15:43 132 158/99 10/24/17 15:40 132 18 158/99 92 Nasal Cannula 4 10/24/17 15:30 130 18 120/61 97 Oxymask 10 10/24/17 15:20 96 18 92/48 99 Oxymask 10 10/24/17 15:10 36.3 80 14 121/49 95 Oxymask 10 10/24/17 12:15 Room Air 10/24/17 12:00 37.6 84 21 158/65 (96) 90 Room Air 10/24/17 10:13 36.8 120 20 96 10/24/17 07:08 120 20 162/53 (89) 10/24/17 07:07 36.8 147 20 135/68 (90) 96 Room Air 10/24/17 07:05 Room Air Notes Mental Status: alert / awake / arousable, participated in evaluation Pt Amnestic to Procedure: Yes Nausea / Vomiting: adequately controlled Pain: adequately controlled Airway Patency, RR, SpO2: stable & adequate BP & HR: stable & adequate, see Notes Hydration State: stable & adequate Anesthetic Complications: no major complications apparent The patient has multiple comorbidities tolerated general anesthesia with LMA for his toe amputation. While in the PACU, the nurses noted that his heart rate was irregular in the 130s with blood pressure of 158/99. The patient was given metoprolol 5 mg IV and an EKG was ordered. After receiving metoprolol the patient's heart rate decreased to 80s-90s. His EKG was done and showed atrial fibrillation with PVCs and nonspecific T wave abnormality. The patient' s vital signs are otherwise stable now. SpO2 95, HR 90s, and blood pressure 120s/60s. I spoke to Dr. Santoyo over the phone and he will monitor the patient's afib and treat him with beta blockers as necessary. The patient will go back to his room in telemetry.
--- NOTE | 2017-10-24 18:21 | GASTROENTEROLOGY PROGRESS NOTE ---
DATE: 10/24/2017 Gastroenterology inpatient progress note. SUBJECTIVE: Chart reviewed, patient examined, patient was sent. We will plan for colonoscopy today and underwent bowel prep. However, there were features of decompensation with him with concerns for early sepsis and therefore this was postponed. The patient currently has a temperature of 37.6, heart rate 100, respirations 22, blood pressure 135/72, 92% on 2 liters nasal cannula. LABORATORY STUDIES: Since yesterday his white count was 13.6 and again this morning was up to 16.5, hemoglobin is stable at 10.6, BUN and creatinine are 19 and 1.23, potassium 3.8. Blood sugars remain in the low to mid 200s. IMAGING: He did have a lower extremity MRI early this morning and it showed advance destructive bony changes in the first interphalangeal joint, evidence of osteomyelitis with evidence of diffuse cellulitis but no specific abscess identified. His original blood culture showed no growth to date. Repeat cultures were taken today of the synovial joints which are pending. MEDICATIONS: His current medications include insulin, Lopressor, hydromorphone, naloxone as needed for opiate reversal, Zofran, Phenergan, labetalol, vancomycin and cefepime. REVIEW OF SYSTEMS: Otherwise noncontributory. PHYSICAL EXAMINATION: GENERAL: Patient is awake, alert and oriented x3. HEENT: Sclerae are anicteric, conjunctivae moist. Oral mucosa moist. HEART: Normal S1, S2. ABDOMEN: Soft, nontender, nondistended, obese without rebound or guarding. EXTREMITIES: With right BKA and left lower extremity is wrapped. IMPRESSION AND PLAN: At the present time, given that his hemoglobin is stable, I believe colonoscopy should be postponed at least until early next week, allowing time to optimize his medical therapy for osteomyelitis and cardiovascular status. We will readdress this through the weekend and decide on the timing for colonoscopy. Patient has not had a colonoscopy in the past. We will follow with you over the weekend.
[2017-10-24] MEDS: INSULIN GLARGINE SOLOSTAR 100 UNITS/ML 3 ML PEN SC SCH (18:32)
[2017-10-24 19:06] LABS: PHOSPHORUS 3.1 mg/dl (2.5-4.9)
[2017-10-25] VITALS (9 sets, daily range): BP systolic 137–171; BP diastolic 62–80; PULSE 77–99; TEMP 36.4–37.5; O2SAT 90–97
[2017-10-25] MEDS: INSULIN ASPART 100 UNITS/ML 3 ML PEN SC SCH ×5 (00:23→21:00)
[2017-10-25] MEDS: SODIUM CHLORIDE 0.9% 1000ML 1,000 ML IV SCH ×2 (05:28→12:10)
[2017-10-25] MEDS: CEFEPIME IV 1,000 MG in SYRINGE 0 ML IV SCH ×3 (05:28→21:49)
--- NOTE | 2017-10-25 08:25 | Anesthesiology Progress Note ---
Anesthesia Post Op Note Date & Time Oct 25, 2017 at 08:24 Vital Signs Pain Intensity: 0.0 Vital Signs Past 12 Hours Date Time Temp Pulse Resp B/P (MAP) Pulse Ox O2 Delivery O2 Flow Rate FiO2 10/25/17 08:11 37.2 83 13 152/62 (92) 97 Nasal Cannula 2.0 10/25/17 05:00 37.0 77 20 137/63 (87) 97 Nasal Cannula 2.0 10/25/17 04:00 Nasal Cannula 2.0 10/25/17 00:05 Nasal Cannula 2.0 10/24/17 20:54 78 20 136/67 (90) 97 Nasal Cannula 2.0 Notes Mental Status: alert / awake / arousable, participated in evaluation Pt Amnestic to Procedure: Yes Nausea / Vomiting: adequately controlled Pain: adequately controlled Airway Patency, RR, SpO2: stable & adequate BP & HR: stable & adequate Hydration State: stable & adequate Anesthetic Complications: no major complications apparent
[2017-10-25] MEDS ORDERED: VANCOMYCIN TROUGH ONE (08:30)
[2017-10-25 08:57] LABS: HEMOGLOBIN 8.5 g/dL (14.0-18.0); MEAN CELL VOLUME 88.1 fL (80-100); MEAN CORPUSCULAR HEMOGLOBIN 28.8 pg (25-34); MEAN CORPUSCULAR HGB CONC 32.7 g/dl (32-36); MEAN PLATELET VOLUME 9.4 fL (7.4-10.4); PLATELET COUNT 380 K/uL (130-400); RED CELL DISTRIBUTION WIDTH SD 45.9 fL (36.4-46.3); WHITE BLOOD COUNT 13.14 K/uL (4.8-10.8)
--- NOTE | 2017-10-25 09:03 | Progress Note ---
Progress Note Date of Service: Oct 25, 2017. Subjective 66 yo m with multiple medical problems, s/p LLE 1st and 4th toe amputations by orthopedics d/t osteomyelitis, seen in f/u for PAD. Pt states he still has "discomfort" in L foot and has general fatigue, but otherwise feeling ok. Denies any new complaints. Problem List Medical Problems: (1) Biliary disease Status: Acute (2) Cellulitis Status: Acute (3) Hyperglycemia Status: Acute (4) Hyperglycemia Status: Acute (5) Hypomagnesemia Status: Acute (6) Intra-abdominal free air of unknown etiology Status: Acute (7) Osteomyelitis of ankle or foot, left, acute Status: Acute (8) Small bowel obstruction Status: Acute Objective Vital Signs Vital Signs Past 12 Hours Date Time Temp Pulse Resp B/P (MAP) Pulse Ox O2 Delivery O2 Flow Rate FiO2 10/25/17 08:11 37.2 83 13 152/62 (92) 97 Nasal Cannula 2.0 10/25/17 05:00 37.0 77 20 137/63 (87) 97 Nasal Cannula 2.0 10/25/17 04:00 Nasal Cannula 2.0 10/25/17 00:05 Nasal Cannula 2.0 Exam CONST: A&O x3, NAD, chronically ill appearing male EXT: BL femoral pulses intact. RLE s/p BKA. LLE orthopedic dressing in place, not removed for exam today. Previously distal pulses not palpable. Laboratory and Microbiology Results Past 24 Hours Test 10/24/17 12:08 10/24/17 12:42 10/24/17 15:18 10/24/17 16:45 Range/Units Bedside Glucose 225 244 214 251 70-99 mg/dl Test 10/24/17 18:01 10/24/17 21:01 10/25/17 00:15 10/25/17 05:35 Range/Units Phosphorus Level 3.1 2.5-4.9 mg/dl Magnesium Level 1.5 1.8-2.4 mg/dl Bedside Glucose 348 277 136 70-99 mg/dl Test 10/25/17 08:49 Range/Units Microbiology Results 10/24/17 Gram Stain, Received Pending 10/24/17 Bacterial Culture, Received Pending 10/24/17 Gram Stain, Received Pending 10/24/17 Bacterial Culture, Received Pending ASSESSMENT and PLAN: PAD LLE with infection/osteomyelitis Pt with significant L distal SFA/pop lesion noted on US. Recommend LLE angio with intervention for limb salvage. Planning on Saturday, pt agreeable. Will premed for iodine allergy and decreased renal function.
[2017-10-25] MEDS: VANCOMYCIN IV 1,500 MG in SODIUM CHLORIDE 0.9% 500ML 500 ML IV SCH (09:06)
[2017-10-25] MEDS: DILTIAZEM HCL 60 MG TAB PO SCH ×2 (09:07→21:06)
[2017-10-25] MEDS: CYANOCOBALAMIN 500 MCG TAB (VIT B-12) PO SCH (09:08)
[2017-10-25] MEDS: INSULIN GLARGINE SOLOSTAR 100 UNITS/ML 3 ML PEN SC SCH ×2 (09:09→21:13)
[2017-10-25 09:39] LABS: CALCIUM 8.6 mg/dl (8.5-10.1); CREATININE 1.06 mg/dl (0.60-1.40); PHOSPHORUS 2.7 mg/dl (2.5-4.9); POTASSIUM 3.5 mmol/L (3.5-5.1)
[2017-10-25] MEDS ORDERED: MAGNESIUM SULFATE 1GM / D5W 1 GM in PREMIXED IN D5W 100 ML IV ONE (10:00)
--- NOTE | 2017-10-25 10:41 | Pharmacy Progress Note ---
Pharmacy Abx Dose Progress Nt Date of Service Oct 25, 2017. Pharmacy Dosing Scope The patient WAS receiving the following antimicrobial agents per Pharmacy consult: Vancomycin 1500 mg IV every 12 hours. Objective Height (Feet): 6 Height (Inches): 4.00 Weight (Kilograms): 113.200 Vital Signs (Past 12Hrs) Vital Signs Past 12 Hours Date Time Temp Pulse Resp B/P (MAP) Pulse Ox O2 Delivery O2 Flow Rate FiO2 10/25/17 08:11 37.2 83 13 152/62 (92) 97 Nasal Cannula 2.0 10/25/17 05:00 37.0 77 20 137/63 (87) 97 Nasal Cannula 2.0 10/25/17 04:00 Nasal Cannula 2.0 10/25/17 00:05 Nasal Cannula 2.0 Lab Results (24Hrs) Item Value Date Time Vancomycin Level Trough 22.7 mcg/ml 10/25/17 0849 Laboratory Tests (24 Hours) Test 10/25/17 08:49 White Blood Count 13.14 K/uL (4.8-10.8) H Micro Results Date/Time Source Procedure Growth Status 10/21/17 20:05 Blood Blood Culture - Preliminary NO GROWTH TO DATE. Resulted 10/21/17 19:54 Blood Blood Culture - Preliminary NO GROWTH TO DATE. Resulted 10/24/17 14:55 Joint Fluid/Space (Synovial) Toe Left 4 Gram Stain - Final Resulted 10/24/17 14:55 Joint Fluid/Space (Synovial) Toe Left 4 Bacterial Culture Pending Resulted 10/24/17 14:55 Joint Fluid/Space (Synovial) Toe Left 1 Gram Stain - Final Resulted 10/24/17 14:55 Joint Fluid/Space (Synovial) Toe Left 1 Bacterial Culture Pending Resulted Assessment & Plan Assessment 66 year old male receiving Vancomycin for treatment of Osteomyelitis. Day # of antimicrobial therapy. Plan Vancomycin IV * Trough level of 22.7 mcg/mL is slightly supra-therapeutic. * Goal trough is 15-20 for Osteomyelitis, however I would aim for a trough ~ 20 mcg/ml given patient has been a [place] resident, prisoner, had a BKA and has diabetes. I therefore allowed nursing to finish the dose at 9 am today (which was started right after the trough was drawn) though the trough later resulted in 22.7 (slightly above goal). * Dosing has been changed to Vancomycin 1500 mg IV every 18 hours starting tomorrow AM, 21 hrs after dose today AM. * Calculated PK: Ke= 0.052/hr, t1/2 = 13.3 hrs. * Trough Vanco level ordered for 10/27/17 before dose at 1800. Pharmacy will continue to follow and will adjust dose/frequency as necessary. Thank you.
--- NOTE | 2017-10-25 11:45 | Hospitalist Progress Note ---
Hospitalist Progress Note Date of Service Oct 25, 2017. Subjective Pt evaluation today including: conversation w/ patient, physical exam, chart review, lab review, review of studies, review of inpatient medication list Voiding: no voiding problems Mr. Flores is having some soreness at his incision site but is otherwise without complaints. He has not had any further bowel movements since completing his GI prep two days ago. ROS Constitutional: no chills, aches, sweats or fever Respiratory: no sob,cough, sputum, or wheezing Cardiac: no chest pain, palpitations, edema, orthopnea or lightheadedness GI: no abdominal pain, nausea, vomiting, diarrhea or constipation : no dysuria or hesitancy Extremities: see HPI Skin: no rash All other systems reviewed and negative Medications Medications Administered Medications (Trade) Dose Ordered Sig/Eros Route Start Time Stop Time Status Last Admin Dose Admin Vancomycin HCl 2000 mg/Sodium Chloride 540 ml @ 200 mls/hr ONE STAT IV 10/21/17 19:28 10/21/17 22:09 DC 10/21/17 20:33 200 MLS/HR Ceftriaxone Sodium (Rocephin Inj) 1 gm NOW STAT IV 10/21/17 19:28 10/21/17 19:31 DC 10/21/17 20:13 1 GM Cyanocobalamin (Vitamin B-12 Tab) 1,000 mcg DAILY PO 10/22/17 09:00 11/21/17 08:59 10/25/17 09:08 1,000 MCG Diltiazem HCl (Cardizem Tab) 120 mg BID PO 10/22/17 09:00 11/21/17 08:59 10/25/17 09:07 120 MG Sodium Chloride 1,000 ml @ 150 mls/hr Q6H40M IV 10/22/17 01:00 10/22/17 14:19 DC 10/22/17 07:32 150 MLS/HR Cefepime HCl 1000 mg/Syringe 11 ml @ 5.5 mls/min Q8H IV 10/22/17 06:00 11/01/17 05:59 10/25/17 05:28 5.5 MLS/MIN Miscellaneous Information (Patient'S Height And/Or Weight Needed) 1 ea Q30M N/A 10/22/17 01:00 10/22/17 01:22 DC 10/22/17 01:20 1 EA Insulin Aspart (novoLOG ASPART) SLIDING SCALE G... Q6 SC 10/22/17 06:00 10/23/17 09:06 DC 10/23/17 06:04 3 UNITS Vancomycin HCl 1750 mg/Sodium Chloride 535 ml @ 200 mls/hr Q12H IV 10/22/17 09:00 10/23/17 10:24 DC 10/23/17 09:11 200 MLS/HR Polyethylene Glycol/ Electrolytes (Golytely Soln) 16 dose TODAY@1600 PO 10/23/17 16:00 10/23/17 21:00 DC 10/23/17 16:25 16 DOSE Morphine Sulfate (MoRPHine SULFATE INJ) 2 mg Q4H PRN IV 10/23/17 08:15 11/06/17 08:14 10/24/17 07:23 2 MG Insulin Aspart (novoLOG ASPART) SLIDING SCALE G... ACHS SC 10/23/17 12:00 10/24/17 03:16 DC 10/23/17 18:49 21 UNITS Miscellaneous (Stop Order) 1 ea ONE ONCE N/A 10/23/17 10:30 10/23/17 10:31 DC 10/23/17 10:40 1 EA Vancomycin HCl 1500 mg/Sodium Chloride 530 ml @ 200 mls/hr Q12H IV 10/23/17 21:00 10/25/17 12:00 10/25/17 09:06 200 MLS/HR Insulin Glargine (Lantus Solostar Pen) 10 units BID SC 10/23/17 21:00 10/24/17 07:25 DC 10/23/17 21:30 10 UNITS Insulin Glargine (Lantus Solostar Pen) 20 units NOW ONCE SC 10/23/17 13:00 10/23/17 13:01 DC 10/23/17 13:29 20 UNITS Insulin Human Regular 10 unit/ Syringe 10 ml @ 1 mls/min TODAY@1830 ONCE IV 10/23/17 18:30 10/23/17 18:39 DC 10/23/17 18:47 1 MLS/MIN Insulin Aspart (novoLOG ASPART) SLIDING SCALE G... 0200 SC 10/24/17 02:00 10/24/17 02:01 DC 10/24/17 01:53 3 UNITS Sodium Chloride 1,000 ml @ 999 mls/hr Q1H1M STAT IV 10/23/17 21:15 10/23/17 22:15 DC 10/23/17 21:21 999 MLS/HR Insulin Aspart (novoLOG ASPART) SLIDING SCALE G... Q6 SC 10/24/17 06:00 11/23/17 05:59 10/25/17 00:23 13 UNITS Insulin Glargine (Lantus Solostar Pen) 15 units BID SC 10/24/17 09:00 10/24/17 13:47 DC 10/24/17 09:35 15 UNITS Sodium Chloride 1,000 ml @ 150 mls/hr Q6H40M IV 10/24/17 09:30 11/23/17 09:29 10/25/17 05:28 150 MLS/HR Insulin Glargine (Lantus Solostar Pen) SEE PROTOCOL TEXT BID SC 10/24/17 17:00 11/23/17 16:59 10/25/17 09:09 25 UNITS Bacitracin (Bacitracin Inj) 100,000 units STK-MED ONCE .ROUTE 10/24/17 14:05 10/24/17 14:06 DC 10/24/17 14:50 100,000 UNITS Metoprolol Tartrate (Lopressor Iv) 5 mg STK-MED ONCE .ROUTE 10/24/17 15:38 10/24/17 15:39 DC 10/24/17 15:43 5 MG Magnesium Sulfate 1 gm/Prmx 100 ml @ 100 mls/hr TODAY@1000 ONCE IV 10/25/17 10:00 10/25/17 10:59 DC 10/25/17 11:26 100 MLS/HR Objective Vital Signs Date Time Temp Pulse Resp B/P (MAP) Pulse Ox O2 Delivery O2 Flow Rate FiO2 10/25/17 08:11 37.2 83 13 152/62 (92) 97 Nasal Cannula 2.0 10/25/17 08:00 Nasal Cannula 4.0 10/25/17 05:00 37.0 77 20 137/63 (87) 97 Nasal Cannula 2.0 10/25/17 04:00 Nasal Cannula 2.0 10/25/17 00:05 Nasal Cannula 2.0 10/24/17 20:54 78 20 136/67 (90) 97 Nasal Cannula 2.0 10/24/17 20:00 97 Nasal Cannula 2.0 10/24/17 19:15 82 22 154/61 (92) 97 Nasal Cannula 2.0 10/24/17 19:00 80 20 140/61 (87) 93 Nasal Cannula 2.0 10/24/17 18:45 78 21 126/56 (79) 93 Nasal Cannula 2.0 10/24/17 18:30 36.9 79 21 131/53 (79) 95 Nasal Cannula 2.0 10/24/17 18:16 86 22 118/59 (78) 95 Nasal Cannula 2.0 10/24/17 18:11 93 20 153/62 (92) 95 Nasal Cannula 2.0 10/24/17 17:31 37.1 92 20 142/63 (89) 94 Nasal Cannula 2.0 10/24/17 17:16 37.2 94 22 141/66 (91) 94 Nasal Cannula 2.0 10/24/17 16:56 37.6 100 22 155/72 (99) 92 Nasal Cannula 2.0 10/24/17 16:42 37.6 94 20 139/65 (89) 93 Nasal Cannula 2.0 10/24/17 16:37 96 139/65 (89) 91 10/24/17 16:15 102 18 147/73 97 Nasal Cannula 4 10/24/17 16:00 92 18 138/76 95 Nasal Cannula 4 10/24/17 15:50 37.1 88 20 140/71 95 Nasal Cannula 4 10/24/17 15:43 132 158/99 10/24/17 15:40 132 18 158/99 92 Nasal Cannula 4 10/24/17 15:30 130 18 120/61 97 Oxymask 10 10/24/17 15:20 96 18 92/48 99 Oxymask 10 10/24/17 15:10 36.3 80 14 121/49 95 Oxymask 10 10/24/17 12:15 Room Air 10/24/17 12:00 37.6 84 21 158/65 (96) 90 Room Air Physical Exam Notes: General: no distress Eyes: normal inspection, PERLL Respiratory: chest non tender, clear to auscultation, normal breath sounds, no respiratory distress, no accessory muscle use Cardiac: regular rate and rhythm, no rub or gallop, no murmur, no edema, no jvd GI/: active bowel sounds, no abd pain or tenderness, soft, non distended Extremities: normal range of motion, normal strength, non tender Neuro/Psych: alert and oriented x 3, normal mood and affect Skin: normal color, dry Laboratory Results Last 24 Hours Test 10/24/17 12:08 10/24/17 12:42 10/24/17 15:18 10/24/17 16:45 Bedside Glucose 225 mg/dl 244 mg/dl 214 mg/dl 251 mg/dl Test 10/24/17 18:01 10/24/17 21:01 10/25/17 00:15 10/25/17 05:35 Phosphorus Level 3.1 mg/dl Magnesium Level 1.5 mg/dl Bedside Glucose 348 mg/dl 277 mg/dl 136 mg/dl Test 10/25/17 08:49 White Blood Count 13.14 K/uL Red Blood Count 2.95 M/uL Hemoglobin 8.5 g/dL Hematocrit 26.0 % Mean Corpuscular Volume 88.1 fL Mean Corpuscular Hemoglobin 28.8 pg Mean Corpuscular Hemoglobin Concent 32.7 g/dl RDW Standard Deviation 45.9 fL RDW Coefficient of Variation 14.0 % Platelet Count 380 K/uL Mean Platelet Volume 9.4 fL Sodium Level 138 mmol/L Potassium Level 3.5 mmol/L Chloride Level 109 mmol/L Carbon Dioxide Level 26 mmol/L Anion Gap 3.0 mmol/L Blood Urea Nitrogen 16 mg/dl Creatinine 1.06 mg/dl Est Creatinine Clear Calc Drug Dose 91.8 ml/min Estimated GFR () 83.2 Estimated GFR (Non- 71.8 BUN/Creatinine Ratio 15.2 Random Glucose 156 mg/dl Calcium Level 8.6 mg/dl Phosphorus Level 2.7 mg/dl Magnesium Level 1.6 mg/dl Vancomycin Level Trough 22.7 mcg/ml Assessment and Plan 66 y/o M complex medical history including HTN, HPL, A flutter, DM, PAD, R BKA, chronic LLE ulcers. Presenting from a local group home with worsening LLE cellulitis and a related foul odor, at the behest of the [facility] nursing staff. He is a resident of a correctional facility and had last followed up at a wound clinic 10/09. Imaging is consistent with osteomyelitis involving the 1st and 4th phalanges with adjacent soft tissue cellulitis. Osteomyelitis and cellulitis of distal LLE \ - continue Cefepime and Vancomycin - wound cultures from I&D pending - consulted orthopedics - amputation of first and fourth toes 10/24 - vascular surgery consulted - patient for angiogram on Saturday - ngtd - cbc am Anemia - admits to LGI bleed for approximately one month. - Hgb dropped to 8.5 today, however no overt bleeding or bowel movements since two nights ago. - consulted GI - colonoscopy pushed back to early next week, will advance patient's diet to low fiber - ASA and Coumadin held - patient had not been taking Coumadin for about a month and INR was 1.0 at admission. He states he just felt like switching to ASA MYNOR - last available lab dates to 01/2017 and reveals normal renal function. - continue IVF - Creat peaked at 1.8 and trended down to wnl - prp am DM - blood sugars still intermittently high - pharmacy consulted for glycemic management - continue bsgs ac & hs Paroxysmal flutter - Cont Diltiazem -- Coumadin and ASA held as above HTN - restart HCTZ/lisinopril now that kidney function has improved - PRN Hydralazine HPL - Lopid held as he is NPO - can restart tomorrow after colonoscopy Full code - Chem prophylaxis held due to anemia
[2017-10-25] MEDS ORDERED: NURSING VERBAL MED ORDER ONE ×2 (15:15→17:30)
--- NOTE | 2017-10-25 16:31 | Orthopedic Progress Note ---
Orthopedic Progress Note Date of Service Oct 25, 2017. Subjective Post OP Day: 1 Reports: feeling well, Denies: complaints Additional Notes: States he's feeling much better today. Wound Care team placed wound vac on the 4th toe site. 1st toe site apparently not a candidate for a vac due to wound flap being adhered to wound bed at this time. Objective dressing C/D/I, A&O x3, toes mobile Wound vac functioning. Date Time Temp Pulse Resp B/P (MAP) Pulse Ox O2 Delivery O2 Flow Rate FiO2 10/25/17 16:04 37.4 93 22 156/72 (100) 92 Room Air 10/25/17 12:18 37.5 80 35 157/80 (105) 95 10/25/17 12:00 Nasal Cannula 4.0 10/25/17 08:11 37.2 83 13 152/62 (92) 97 Nasal Cannula 2.0 10/25/17 08:00 Nasal Cannula 4.0 10/25/17 05:00 37.0 77 20 137/63 (87) 97 Nasal Cannula 2.0 10/25/17 04:00 Nasal Cannula 2.0 10/25/17 00:05 Nasal Cannula 2.0 10/24/17 20:54 78 20 136/67 (90) 97 Nasal Cannula 2.0 10/24/17 20:00 97 Nasal Cannula 2.0 10/24/17 19:15 82 22 154/61 (92) 97 Nasal Cannula 2.0 10/24/17 19:00 80 20 140/61 (87) 93 Nasal Cannula 2.0 10/24/17 18:45 78 21 126/56 (79) 93 Nasal Cannula 2.0 10/24/17 18:30 36.9 79 21 131/53 (79) 95 Nasal Cannula 2.0 10/24/17 18:16 86 22 118/59 (78) 95 Nasal Cannula 2.0 10/24/17 18:11 93 20 153/62 (92) 95 Nasal Cannula 2.0 10/24/17 17:31 37.1 92 20 142/63 (89) 94 Nasal Cannula 2.0 10/24/17 17:16 37.2 94 22 141/66 (91) 94 Nasal Cannula 2.0 10/24/17 16:56 37.6 100 22 155/72 (99) 92 Nasal Cannula 2.0 10/24/17 16:42 37.6 94 20 139/65 (89) 93 Nasal Cannula 2.0 10/24/17 16:37 96 139/65 (89) 91 Laboratory Results 24 Hours: Test 10/25/17 08:49 Hematocrit 26.0 % Hemoglobin 8.5 g/dL Assessment & Plan Assessment: POD 1 s/p Left great toe/ 4th toe disarticulation. Osteomyelitis of left great toe on xray. Open draining ulceration at 4th toe with 4 toe blackened PAD; venous stasis dz with h/o right BKA WBC count decreasing (1) Anemia (2) Atrial flutter (3) Diabetes (4) Hepatitis C (5) High blood pressure (6) Jaundice (7) Lung mass Plan: Continue regular dressing changes. Cx growing Group B Beta Strep Antibx as per Med team/ID team Wound care team to follow regularly for dressing/wound vac changes
--- NOTE | 2017-10-25 18:41 | GASTROENTEROLOGY PROGRESS NOTE ---
DATE: 10/25/2017 SUBJECTIVE: Chart reviewed: Patient examined. Patient underwent surgery for his toes. He did report there was some bleeding associated with this. Patient continues to feel well from the GI standpoint without abdominal pain, nausea, vomiting, and is tolerating a full meal this evening. His hemoglobin did drift down to 8.5 from 10.6 yesterday, but there are no reports of GI output associated with this drop. This may reflect postop changes and occult abrasion. His medications were reviewed and include Benadryl, famotidine, prednisone, vancomycin, cefepime, diltiazem, hydralazine, and p.r.n. REVIEW OF SYSTEMS: Otherwise noncontributory. PHYSICAL EXAMINATION: VITAL SIGNS: Today, patient is afebrile at 37.4, blood pressure 156/72, heart rate 93, respirations 22, and 92% on room air. GENERAL: Patient is awake, alert, oriented, resting comfortably in bed. He is eating a solid meal without difficulty. EYES: Sclerae are anicteric. GASTROINTESTINAL: Abdomen is soft, nontender, without rebound or guarding. Positive bowel sounds are noted. NEUROLOGIC: Patient is awake, alert, and oriented x3. IMPRESSION AND PLAN: No obvious signs of gastrointestinal bleeding. Would observe hemoglobin daily to see if there is any trend although this may reflect postsurgical changes to his hemoglobin. Will readdress a colonoscopy once he is stable from an orthopedic standpoint unless obvious bleeding occurs. Ultimately, patient will require colonoscopy given that he has not had one in the past and for the reported rectal bleeding that has been present for 1 month prior to admission and his anemia on admission. All questions answered.
[2017-10-25] MEDS: MAGNESIUM OXIDE 400 MG TAB PO SCH (21:06)
[2017-10-25] MEDS: LISINOPRIL/HCTZ 20/25MG TAB PO SCH (21:07)
[2017-10-26] VITALS (9 sets, daily range): BP systolic 122–179; BP diastolic 55–78; PULSE 80–104; TEMP 36.7–37.7; O2SAT 80–98; BMI 32.2
[2017-10-26] MEDS: VANCOMYCIN IV 1,500 MG in SODIUM CHLORIDE 0.9% 500ML 500 ML IV SCH (05:44)
[2017-10-26] MEDS: CEFEPIME IV 1,000 MG in SYRINGE 0 ML IV SCH ×2 (05:45→15:06)
--- NOTE | 2017-10-26 05:57 | Orthopedic Progress Note ---
Orthopedic Progress Note Date of Service Oct 26, 2017. Subjective Post OP Day: 2 Reports: feeling well, pain controlled w PO medications, Denies: complaints, chest pain, SOB, nausea / vomiting, light headedness, calf pain Objective calves soft nontender, dressing C/D/I, A&O x3 Date Time Temp Pulse Resp B/P (MAP) Pulse Ox O2 Delivery O2 Flow Rate FiO2 10/26/17 04:00 Nasal Cannula 2.0 10/26/17 03:55 37.0 104 20 153/55 (87) 93 Nasal Cannula 2.0 10/26/17 00:05 Nasal Cannula 2.0 10/25/17 23:50 79 164/68 (100) 10/25/17 23:30 88 20 171/76 (107) Nasal Cannula 2.0 10/25/17 23:18 86 171/76 10/25/17 20:37 95 Nasal Cannula 2.0 10/25/17 20:33 36.4 99 20 169/72 (104) 90 Room Air 10/25/17 20:00 Room Air 10/25/17 16:04 37.4 93 22 156/72 (100) 92 Room Air 10/25/17 16:00 92 Room Air 10/25/17 12:18 37.5 80 35 157/80 (105) 95 10/25/17 12:00 Nasal Cannula 4.0 10/25/17 08:11 37.2 83 13 152/62 (92) 97 Nasal Cannula 2.0 10/25/17 08:00 Nasal Cannula 4.0 Laboratory Results 24 Hours: Test 10/25/17 08:49 10/26/17 04:44 Hematocrit 26.0 % Hemoglobin 8.5 g/dL Assessment & Plan Assessment: POD 2 s/p Left great toe/ 4th toe disarticulation. wound vac to be changed Saturday. no drainage through dressing this am. Osteomyelitis of left great toe on xray. Open draining ulceration at 4th toe with 4 toe blackened PAD; venous stasis dz with h/o right BKA WBC count decreasing (1) Anemia (2) Atrial flutter (3) Diabetes (4) Hepatitis C (5) High blood pressure (6) Jaundice (7) Lung mass Plan: Continue regular dressing changes. Cx growing Group B Beta Strep Antibx as per Med team/ID team Wound care team to follow regularly for dressing/wound vac changes
[2017-10-26 06:28] LABS: HEMATOCRIT 27.4 % (42-52); HEMOGLOBIN 9.2 g/dL (14.0-18.0); MEAN CELL VOLUME 87.5 fL (80-100); MEAN CORPUSCULAR HEMOGLOBIN 29.4 pg (25-34); MEAN CORPUSCULAR HGB CONC 33.6 g/dl (32-36); MEAN PLATELET VOLUME 9.6 fL (7.4-10.4); PLATELET COUNT 384 K/uL (130-400); RED CELL DISTRIBUTION WIDTH SD 45.2 fL (36.4-46.3); WHITE BLOOD COUNT 11.55 K/uL (4.8-10.8)
[2017-10-26 07:04] LABS: CALCIUM 8.3 mg/dl (8.5-10.1); CREATININE 1.13 mg/dl (0.60-1.40); POTASSIUM 3.4 mmol/L (3.5-5.1)
[2017-10-26] MEDS: DILTIAZEM HCL 60 MG TAB PO SCH ×2 (08:26→20:49)
[2017-10-26] MEDS: CYANOCOBALAMIN 500 MCG TAB (VIT B-12) PO SCH (08:27)
[2017-10-26] MEDS: MAGNESIUM OXIDE 400 MG TAB PO SCH ×2 (08:27→20:49)
[2017-10-26] MEDS: INSULIN ASPART 100 UNITS/ML 3 ML PEN SC SCH ×4 (08:31→20:56)
[2017-10-26] MEDS ORDERED: POTASSIUM CHLORIDE 10 MEQ TABCR PO STA (08:32)
[2017-10-26] MEDS ORDERED: INSULIN GLARGINE SOLOSTAR 100 UNITS/ML 3 ML PEN SC SCH (09:00)
--- NOTE | 2017-10-26 10:09 | Gastroenterology Progress Note ---
Progress Note Date of Service: Oct 26, 2017 Subjective Pt evaluation today including: conversation w/ patient, physical exam, chart review, lab review Review of Systems Abdomen: + constipation, No pain, No diarrhea, No GI bleeding Medications Current Inpatient Medications Medications (Trade) Dose Ordered Sig/Eros Route Start Time Stop Time Status Last Admin Dose Admin Cyanocobalamin (Vitamin B-12 Tab) 1,000 mcg DAILY PO 10/22/17 09:00 11/21/17 08:59 10/26/17 08:27 1,000 MCG Diltiazem HCl (Cardizem Tab) 120 mg BID PO 10/22/17 09:00 11/21/17 08:59 10/26/17 08:26 120 MG Artificial Tears (Artificial Tears) 1 drops QID PRN OPL 10/21/17 22:45 11/20/17 22:44 Acetaminophen (Tylenol Tab) 650 mg Q4H PRN PO 10/21/17 22:45 11/20/17 22:44 Al Hydrox/Mg Hydrox/Simethicone (Maalox Max Susp) 15 ml Q4H PRN PO 10/21/17 22:45 11/20/17 22:44 Magnesium Hydroxide (Milk Of Magnesia Susp) 30 ml Q6H PRN PO 10/21/17 22:45 11/20/17 22:44 Polyethylene (Miralax Powder Packet) 17 gm DAILY PRN PO 10/21/17 22:45 11/20/17 22:44 Zolpidem Tartrate (Ambien Tab) 5 mg HSZ PRN PO 10/21/17 22:45 11/20/17 22:44 Ondansetron HCl (Zofran Inj) 4 mg Q6H PRN IV 10/21/17 22:45 11/20/17 22:44 10/25/17 19:18 4 MG Cefepime HCl 1000 mg/Syringe 11 ml @ 5.5 mls/min Q8H IV 10/22/17 06:00 11/01/17 05:59 10/26/17 05:45 5.5 MLS/MIN Miscellaneous Information (Consult) 1 ea UD PRN N/A 10/22/17 00:15 11/21/17 00:14 Glucose (Glucose 40% Gel) 15-30 GRAMS 15 GRAMS... UD PRN PO 10/22/17 00:15 5/10/18 00:14 Glucose (Glucose Chew Tab) 4-8 Tablets 4 Tabl... UD PRN PO 10/22/17 00:15 11/21/17 00:14 Dextrose (Dextrose 50% 50ML Syringe) 25-50ML OF 50% DW IV FOR... UD PRN IV 10/22/17 00:15 11/21/17 00:14 Glucagon (Glucagon Inj) 1 mg UD PRN SQ 10/22/17 00:15 11/21/17 00:14 Hydralazine HCl (HydrALAZINE INJ) 10 mg Q4H PRN IV. 10/22/17 10:00 11/21/17 09:59 Oxycodone HCl (Roxicodone Immediate Rel Tab) 5 mg Q4H PRN PO 10/23/17 08:15 11/06/17 08:14 Morphine Sulfate (MoRPHine SULFATE INJ) 2 mg Q4H PRN IV 10/23/17 08:15 11/06/17 08:14 10/24/17 07:23 2 MG Miscellaneous Information (Consult Glycemic Management Pharmacy) 1 ea UD PRN N/A 10/23/17 17:37 11/22/17 17:36 Metoprolol Tartrate (Lopressor Iv) 5 mg Q4 PRN IV 10/24/17 16:00 11/23/17 15:59 10/25/17 23:18 5 MG Prednisone (PredniSONE TAB) 50 mg TODAY@1800 ONCE PO 10/27/17 18:00 10/27/17 18:01 Diphenhydramine HCl (Benadryl Inj) 50 mg Mo@0730 IV 10/28/17 07:30 10/28/17 23:59 Sodium Chloride 1,000 ml @ 113 mls/hr Q8H51M IV 10/28/17 06:00 10/28/17 14:50 Prednisone (PredniSONE TAB) 50 mg Q8H PO 10/28/17 02:00 10/28/17 10:01 Famotidine 20 mg/ Syringe 5 ml @ 2.5 mls/min Mo@0730 IV 10/28/17 07:30 10/28/17 23:59 Magnesium Oxide (Mag-Ox Tab) 400 mg BID PO 10/25/17 21:00 11/24/17 20:59 10/26/17 08:27 400 MG Vancomycin HCl 1500 mg/Sodium Chloride 530 ml @ 200 mls/hr Q18H IV 10/26/17 06:00 12/02/17 20:59 10/26/17 05:44 200 MLS/HR HCTZ/Lisinopril (Prinzide 20-25MG Tab) 1 tab HS PO 10/25/17 21:00 11/24/17 20:59 10/25/17 21:07 1 TAB Insulin Aspart (novoLOG ASPART) SLIDING SCALE G... ACHS SC 10/25/17 21:00 11/24/17 20:59 10/26/17 08:31 11 UNITS Insulin Glargine (Lantus Solostar Pen) 25 units 0900 SC 10/26/17 09:00 10/26/17 11:00 10/26/17 08:32 25 UNITS Insulin Glargine (Lantus Solostar Pen) 20 units BID SC 10/26/17 21:00 11/25/17 20:59 Objective Vital Signs Date Time Temp Pulse Resp B/P (MAP) Pulse Ox O2 Delivery O2 Flow Rate FiO2 10/26/17 08:08 37.2 98 18 179/78 (111) 97 Nasal Cannula 2.0 10/26/17 04:00 Nasal Cannula 2.0 10/26/17 03:55 37.0 104 20 153/55 (87) 93 Nasal Cannula 2.0 10/26/17 00:05 Nasal Cannula 2.0 10/25/17 23:50 79 164/68 (100) 10/25/17 23:30 88 20 171/76 (107) Nasal Cannula 2.0 10/25/17 23:18 86 171/76 10/25/17 20:37 95 Nasal Cannula 2.0 10/25/17 20:33 36.4 99 20 169/72 (104) 90 Room Air 10/25/17 20:00 Room Air 10/25/17 16:04 37.4 93 22 156/72 (100) 92 Room Air 10/25/17 16:00 92 Room Air 10/25/17 12:18 37.5 80 35 157/80 (105) 95 10/25/17 12:00 Nasal Cannula 4.0 Physical Exam General Appearance: no apparent distress Abdomen: non tender, soft, + distended Extremities: + swelling Laboratory Results Last 24 Hours Test 10/25/17 11:59 10/25/17 16:03 10/25/17 20:39 10/26/17 05:59 Bedside Glucose 174 mg/dl 293 mg/dl 145 mg/dl White Blood Count 11.55 K/uL Red Blood Count 3.13 M/uL Hemoglobin 9.2 g/dL Hematocrit 27.4 % Mean Corpuscular Volume 87.5 fL Mean Corpuscular Hemoglobin 29.4 pg Mean Corpuscular Hemoglobin Concent 33.6 g/dl RDW Standard Deviation 45.2 fL RDW Coefficient of Variation 14.0 % Platelet Count 384 K/uL Mean Platelet Volume 9.6 fL Sodium Level 138 mmol/L Potassium Level 3.4 mmol/L Chloride Level 105 mmol/L Carbon Dioxide Level 26 mmol/L Anion Gap 7.0 mmol/L Blood Urea Nitrogen 13 mg/dl Creatinine 1.13 mg/dl Est Creatinine Clear Calc Drug Dose 88.5 ml/min Estimated GFR () 77.0 Estimated GFR (Non- 66.4 BUN/Creatinine Ratio 11.2 Random Glucose 217 mg/dl Calcium Level 8.3 mg/dl Test 10/26/17 06:27 Bedside Glucose 210 mg/dl Assessment and Plan Overall stable. Note increase in HB without transfusion. No concern for bleeding. Please notify if there is evidence of overt bleeding.
--- NOTE | 2017-10-26 15:43 | Pharmacy Progress Note ---
Pharmacy Glycemic Short Note 2 Date of Service Oct 26, 2017. OUTPATIENT ANTIDIABETIC REGIMEN: * Humulin 70/30 40 units qAM, 34 units qPM * Metformin 1 gm BID * A1c = 11.5 % 04/22/16 ASSESSMENT: 10/26/17 * Patient received 71 units of insulin on 10/25. Diet advanced this morning. * 35 units of basal insulin * 36 units of bolus insulin * BSGs: 136, 174, 293, 145 * Fasting BSG of 210 mg/dL is above goal. * Basal insulin was decreased 12% yesterday d/t rapid decrease in fasting BSG ( 10/24: 236 -> 10/25: 136). Will return to total of 40 units/day. * Post prandial BSGs are improving. 10/24/17 * 66 y/o male admitted for toe osteomyelitis. History of type 2 diabetes managed on pre-mixed insulin and metformin as an outpatient. * Pharmacy received the consult for glycemic management last evening and adjustments were made to insulin regimen * He received a total of 66 units of insulin yesterday, with a majority of BSGs being above goal * His PM Lantus was reduced slightly last night since he was going to be NPO after midnight but has remained above goal today * I increased his Lantus this AM but he is still elevated at lunch (currently in the [place]) so will plan to increase basal further, with next dose being administered early at dinner * Will also tighten CF. Current CR seemed to work well last night. PLAN FOR INPATIENT GLYCEMIC CONTROL: * Hold outpatient oral diabetes medications * Basal insulin * Lantus 25 units SQ this am, then 20 units SQ BID * Bolus insulin * NovoLog per scale ACHS or Q6hrs while NPO * Goal Range: Low 110 mg/dL - High 140 mg/dL * Correction Factor: 15 mg/dL/unit * Nutritional / Prandial insulin per carb ratio of 1 unit per 5 grams CHO consumed Thank you.
--- NOTE | 2017-10-26 16:18 | Progress Note ---
Subjective Date of Service: Oct 26, 2017. Subjective Pt evaluation today including: conversation w/ patient, conversation w/ family , physical exam, chart review, lab review, review of studies, conversation w/ solution consultant, review of inpatient medication list Doing okay, eating fair, pain fairly controlled, no other complaint Problem List Medical Problems: (1) Biliary disease Status: Acute (2) Cellulitis Status: Acute (3) Hyperglycemia Status: Acute (4) Hyperglycemia Status: Acute (5) Hypomagnesemia Status: Acute (6) Intra-abdominal free air of unknown etiology Status: Acute (7) Osteomyelitis of ankle or foot, left, acute Status: Acute (8) Small bowel obstruction Status: Acute Review of Systems Constitutional: + weakness, + fatigue, No fever, No chills, No sweats, No weight loss, No problem reported Eyes: No worsening of vision, No eye pain, No redness, No discharge, No diplopia ENT: No hearing loss, No unusual epistaxis, No nasal symptoms, No sore throat, No tinnitus, No dental problems, No trouble swallowing Respiratory: No cough, No sputum, No wheezing, No shortness of breath, No dyspnea on exertion, No dyspnea at rest, No hemoptysis Cardiac: No chest pain, No orthopnea, No PND, No edema, No claudication, No palpitations Abdomen: No pain, No nausea, No vomiting, No diarrhea, No constipation Musculoskeletal: No joint pain, No muscle pain, No swelling, No calf pain Male : No dysuria, No urinary frequency, No incontinence, No nocturia more than once/night, No slowing stream, No hematuria Neurologic: No memory loss, No paralysis, No weakness, No numbness/tingling, No vertigo, No balance problems Psychiatric: No depression symptoms, No anhedonism, No anxiety, No insomnia, No substance abuse Heme: No abnormal bleeding/bruising, No clotting problems, No swollen lymph nodes, No night sweats Endo: No fatigue, No excessive thirst, No excessive urination Skin: + problem reported (Left lower foot wounds in dressing), No rash, No itch , No new/changing skin lesions, No color change, No bleeding Objective Vital Signs Date Time Temp Pulse Resp B/P (MAP) Pulse Ox O2 Delivery O2 Flow Rate FiO2 10/26/17 12:00 93 Nasal Cannula 2.0 10/26/17 11:57 37.0 80 20 170/66 (100) 98 Nasal Cannula 2.0 10/26/17 08:08 37.2 98 18 179/78 (111) 97 Nasal Cannula 2.0 10/26/17 08:00 93 Nasal Cannula 2.0 10/26/17 04:00 Nasal Cannula 2.0 10/26/17 03:55 37.0 104 20 153/55 (87) 93 Nasal Cannula 2.0 10/26/17 00:05 Nasal Cannula 2.0 10/25/17 23:50 79 164/68 (100) 10/25/17 23:30 88 20 171/76 (107) Nasal Cannula 2.0 10/25/17 23:18 86 171/76 10/25/17 20:37 95 Nasal Cannula 2.0 10/25/17 20:33 36.4 99 20 169/72 (104) 90 Room Air 10/25/17 20:00 Room Air Physical Exam General Appearance: WD/WN, no apparent distress Eyes: normal inspection, PERRL, EOMI, sclerae normal ENT: normal ENT inspection, hearing grossly normal, pharynx normal Neck: supple, no adenopathy, thyroid normal, no JVD, no carotid bruits, trachea midline Respiratory/Chest: chest non-tender, lungs clear, normal breath sounds, no respiratory distress, no accessory muscle use Cardiovascular: regular rate, rhythm, no edema, no gallop, no JVD, no murmur Abdomen: normal bowel sounds, non tender, soft, no organomegaly, no pulsatile mass Extremities: normal range of motion, non-tender, normal inspection, no pedal edema, no calf tenderness, normal capillary refill, pelvis stable Neurologic/Psychiatric: wellness program manager II-XII nml as tested, no motor/sensory deficits, alert, normal mood/affect, oriented x 3 Skin: normal color, warm/dry, no rash, + pertinent finding (Left lower foot wound in dressing with wound VAC in place) Lymphatic: no adenopathy Laboratory Results Last 24 Hours Test 10/25/17 20:39 10/26/17 05:59 10/26/17 06:27 10/26/17 11:19 Bedside Glucose 145 mg/dl 210 mg/dl 181 mg/dl White Blood Count 11.55 K/uL Red Blood Count 3.13 M/uL Hemoglobin 9.2 g/dL Hematocrit 27.4 % Mean Corpuscular Volume 87.5 fL Mean Corpuscular Hemoglobin 29.4 pg Mean Corpuscular Hemoglobin Concent 33.6 g/dl RDW Standard Deviation 45.2 fL RDW Coefficient of Variation 14.0 % Platelet Count 384 K/uL Mean Platelet Volume 9.6 fL Sodium Level 138 mmol/L Potassium Level 3.4 mmol/L Chloride Level 105 mmol/L Carbon Dioxide Level 26 mmol/L Anion Gap 7.0 mmol/L Blood Urea Nitrogen 13 mg/dl Creatinine 1.13 mg/dl Est Creatinine Clear Calc Drug Dose 88.5 ml/min Estimated GFR () 77.0 Estimated GFR (Non- 66.4 BUN/Creatinine Ratio 11.2 Random Glucose 217 mg/dl Calcium Level 8.3 mg/dl Assessment and Plan 66 y/o M with complex medical history including HTN, HPL, A flutter, DM, PAD, R BKA, chronic LLE ulcers admitted October 21, 2017 because of osteomyelitis and cellulitis of distal LLE Per record, he presenting from a local [facility] with worsening LLE cellulitis and a related foul odor, at the behest of the [facility] nursing staff. He is a resident of a correctional facility and had last followed up at a wound clinic 10/09. Left foot osteomyelitis involving the 1st and 4th phalanges with adjacent soft tissue cellulitis. amputation of first and fourth toes 10/24/2017. Postop day 2 Orthopedic on the case, continue regular dressing changes. Cx growing Group B Beta Strep Possible mild sepsis associated with leukocytosis on October 24, 2017, associated with tachycardia, mild fever 37.6, Will follow up culture and sensitivity, continue current antibiotic for now has been continued discontinue cefepime and continue vancomycin vascular surgery consulted, plan angiogram on Saturday History of A. fib, was on warfarin at home, currently is on hold, Patient was having A. fib this morning up to 140, and back to normal sinus rhythm already discussed with patient the risk and benefit of hold her blood thinner, he agreed to taking the risk, I will give transient heparin drip before next week angiography studies or colonoscopy studies on postop day 0 anesthesiology call me report patient was having A. fib EKG, with A. 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
[2017-10-26] MEDS ORDERED: HEPARIN IV LOW DOSE NO BOLUS SCH (16:30)
[2017-10-26 17:08] LABS: BASO % 0.3 %; BASO ABS # 0.03 K/uL (0-0.2); EOS % 3.1 %; EOS ABS # 0.36 K/uL (0-0.5); HEMATOCRIT 29.4 % (42-52); HEMOGLOBIN 9.7 g/dL (14.0-18.0); IG# 0.05 K/uL (0.00-0.02); LYMPH % 9.7 %; LYMPH ABS # 1.12 K/uL (1.2-3.4); MEAN CELL VOLUME 87.2 fL (80-100); MEAN CORPUSCULAR HEMOGLOBIN 28.8 pg (25-34); MEAN PLATELET VOLUME 9.4 fL (7.4-10.4); MONO % 5.3 %; MONO ABS # 0.61 K/uL (0.11-0.59); NEUT % 81.2 %; NEUT ABS # 9.42 K/uL (1.4-6.5); PLATELET COUNT 419 K/uL (130-400); RED CELL DISTRIBUTION WIDTH CV 13.8 % (11.5-14.5); RED CELL DISTRIBUTION WIDTH SD 44.5 fL (36.4-46.3); WHITE BLOOD COUNT 11.59 K/uL (4.8-10.8)
[2017-10-26 17:20] LABS: INR 1.1 (0.9-1.1); PTT PATIENT 29.4 SECONDS (21.0-31.0)
[2017-10-26] MEDS: HEPARIN 25,000 UNIT/500ML D5W 500 ML IV SCH (17:48)
[2017-10-26] MEDS: LISINOPRIL/HCTZ 20/25MG TAB PO SCH (20:50)
[2017-10-26] MEDS: INSULIN GLARGINE SOLOSTAR 100 UNITS/ML 3 ML PEN SC SCH (20:53)
[2017-10-26 23:50] LABS: PTT PATIENT 28.8 SECONDS (21.0-31.0)
[2017-10-27] MEDS ORDERED: HEPARIN IV BOLUS 4,500 UNIT in SYRINGE 0 ML IV ONE ×3 (00:30→23:00)
[2017-10-27] MEDS: VANCOMYCIN IV 1,500 MG in SODIUM CHLORIDE 0.9% 500ML 500 ML IV SCH ×2 (00:32→17:48)
[2017-10-27] MEDS: HEPARIN 25,000 UNIT/500ML D5W 500 ML IV SCH ×5 (00:34→22:51)
[2017-10-27 03:55] VITALS: BP 141/74; PULSE 82; TEMP 37.2; O2SAT 95
[2017-10-27] MEDS: MoRPHine SULFATE 2 MG/ML CARP IV PRN (04:39)
--- NOTE | 2017-10-27 05:59 | Orthopedic Progress Note ---
Orthopedic Progress Note Date of Service Oct 27, 2017. Subjective Post OP Day: 3 Reports: feeling well, pain controlled w PO medications, Denies: complaints, chest pain, SOB, nausea / vomiting, light headedness, calf pain Objective dressing C/D/I, A&O x3 Date Time Temp Pulse Resp B/P (MAP) Pulse Ox O2 Delivery O2 Flow Rate FiO2 10/27/17 03:55 37.2 82 20 141/74 (96) 95 Nasal Cannula 2.0 10/27/17 00:05 Nasal Cannula 3.0 10/26/17 23:55 92 Nasal Cannula 2.5 10/26/17 23:55 37.7 80 17 122/62 (82) 80 Room Air 10/26/17 20:56 37.4 89 24 134/61 (85) 91 Room Air 10/26/17 19:50 Nasal Cannula 3.0 10/26/17 16:26 36.7 85 20 154/71 (98) 94 Room Air 10/26/17 16:00 93 Nasal Cannula 2.0 10/26/17 12:00 93 Nasal Cannula 2.0 10/26/17 11:57 37.0 80 20 170/66 (100) 98 Nasal Cannula 2.0 10/26/17 08:08 37.2 98 18 179/78 (111) 97 Nasal Cannula 2.0 10/26/17 08:00 93 Nasal Cannula 2.0 Laboratory Results 24 Hours: Test 10/26/17 05:59 10/26/17 16:57 10/27/17 04:44 Hematocrit 27.4 % 29.4 % Hemoglobin 9.2 g/dL 9.7 g/dL White Blood Count 11.59 K/uL Red Blood Count 3.37 M/uL Mean Corpuscular Volume 87.2 fL Mean Corpuscular Hemoglobin 28.8 pg Mean Corpuscular Hemoglobin Concent 33.0 g/dl Platelet Count 419 K/uL Mean Platelet Volume 9.4 fL Neutrophils (%) (Auto) 81.2 % Lymphocytes (%) (Auto) 9.7 % Monocytes (%) (Auto) 5.3 % Eosinophils (%) (Auto) 3.1 % Basophils (%) (Auto) 0.3 % Neutrophils # (Auto) 9.42 K/uL Lymphocytes # (Auto) 1.12 K/uL Monocytes # (Auto) 0.61 K/uL Eosinophils # (Auto) 0.36 K/uL Basophils # (Auto) 0.03 K/uL Prothromb Time International Ratio 1.1 Prothrombin Time 11.5 SECONDS Assessment & Plan Assessment: POD 3 s/p Left great toe/ 4th toe disarticulation. wound vac to be changed Saturday. dressing changed yesterday, no drainage noted this am Osteomyelitis of left great toe on xray. Open draining ulceration at 4th toe with 4 toe blackened PAD; venous stasis dz with h/o right BKA WBC count decreasing (1) Anemia (2) Atrial flutter (3) Diabetes (4) Hepatitis C (5) High blood pressure (6) Jaundice (7) Lung mass Plan: Continue regular dressing changes. Cx growing Group B Beta Strep Antibx as per Med team/ID team Wound care team to follow regularly for dressing/wound vac changes angiogram planned for saturday
[2017-10-27 06:40] LABS: HEMATOCRIT 29.3 % (42-52); HEMOGLOBIN 9.9 g/dL (14.0-18.0); MEAN CELL VOLUME 87.7 fL (80-100); MEAN CORPUSCULAR HEMOGLOBIN 29.6 pg (25-34); MEAN CORPUSCULAR HGB CONC 33.8 g/dl (32-36); MEAN PLATELET VOLUME 9.5 fL (7.4-10.4); PLATELET COUNT 422 K/uL (130-400); RED CELL DISTRIBUTION WIDTH CV 13.7 % (11.5-14.5); RED CELL DISTRIBUTION WIDTH SD 44.1 fL (36.4-46.3); WHITE BLOOD COUNT 10.02 K/uL (4.8-10.8)
[2017-10-27 07:01] LABS: PTT PATIENT 30.9 SECONDS (21.0-31.0)
[2017-10-27 07:07] LABS: CALCIUM 8.8 mg/dl (8.5-10.1); CREATININE 1.16 mg/dl (0.60-1.40); POTASSIUM 3.6 mmol/L (3.5-5.1)
[2017-10-27] MEDS ORDERED: MAGNESIUM SULFATE 1GM / D5W 1 GM in PREMIXED IN D5W 100 ML IV STA (07:27)
[2017-10-27] MEDS: MAGNESIUM OXIDE 400 MG TAB PO SCH ×2 (07:42→21:11)
[2017-10-27] MEDS: CYANOCOBALAMIN 500 MCG TAB (VIT B-12) PO SCH (07:42)
[2017-10-27] MEDS: DILTIAZEM HCL 60 MG TAB PO SCH ×2 (07:42→21:12)
[2017-10-27] MEDS: INSULIN ASPART 100 UNITS/ML 3 ML PEN SC SCH ×4 (07:51→21:00)
[2017-10-27] MEDS: INSULIN GLARGINE SOLOSTAR 100 UNITS/ML 3 ML PEN SC SCH ×2 (07:52→21:13)
[2017-10-27] MEDS ORDERED: NURSING VERBAL MED ORDER ONE (08:00)
[2017-10-27 08:39] VITALS: BP 144/63; PULSE 91; O2SAT 96
[2017-10-27] MEDS ORDERED: MAGNESIUM OXIDE 400 MG TAB PO SCH (09:00)
[2017-10-27] MEDS ORDERED: INSULIN GLARGINE SOLOSTAR 100 UNITS/ML 3 ML PEN SC ONE (12:00)
[2017-10-27 12:06] VITALS: BP 133/62; PULSE 76; O2SAT 94
[2017-10-27 13:50] LABS: PTT PATIENT 29.4 SECONDS (21.0-31.0)
--- NOTE | 2017-10-27 14:18 | Progress Note ---
Subjective Date of Service: Oct 27, 2017. Subjective Pt evaluation today including: conversation w/ patient, physical exam, chart review, lab review, review of studies, conversation w/ internal audit consultant, review of inpatient medication list Doing fair, eating voiding good, denies spiking fever, no other complaint, left foot S/P amputation, local in dress, Problem List Medical Problems: (1) Biliary disease Status: Acute (2) Cellulitis Status: Acute (3) Hyperglycemia Status: Acute (4) Hyperglycemia Status: Acute (5) Hypomagnesemia Status: Acute (6) Intra-abdominal free air of unknown etiology Status: Acute (7) Osteomyelitis of ankle or foot, left, acute Status: Acute (8) Small bowel obstruction Status: Acute Review of Systems Constitutional: + weakness, + fatigue, No fever, No chills, No sweats, No weight loss, No problem reported Eyes: No worsening of vision, No eye pain, No redness, No discharge, No diplopia ENT: No hearing loss, No unusual epistaxis, No nasal symptoms, No sore throat, No tinnitus, No dental problems, No trouble swallowing Respiratory: No cough, No sputum, No wheezing, No shortness of breath, No dyspnea on exertion, No dyspnea at rest, No hemoptysis Cardiac: No chest pain, No orthopnea, No PND, No edema, No claudication, No palpitations Abdomen: No pain, No nausea, No vomiting, No diarrhea, No constipation Musculoskeletal: + see HPI, No joint pain, No muscle pain, No swelling, No calf pain Male : No dysuria, No urinary frequency, No incontinence, No nocturia more than once/night, No slowing stream, No hematuria Neurologic: No memory loss, No paralysis, No weakness, No numbness/tingling, No vertigo, No balance problems Psychiatric: No depression symptoms, No anhedonism, No anxiety, No insomnia, No substance abuse Heme: No abnormal bleeding/bruising, No clotting problems, No swollen lymph nodes, No night sweats Endo: No fatigue, No excessive thirst, No excessive urination Skin: + see HPI, No rash, No itch, No new/changing skin lesions, No color change, No bleeding Objective Vital Signs Date Time Temp Pulse Resp B/P (MAP) Pulse Ox O2 Delivery O2 Flow Rate FiO2 10/27/17 12:06 76 20 133/62 (85) 94 10/27/17 12:00 Nasal Cannula 2.0 10/27/17 08:39 91 18 144/63 (90) 96 10/27/17 08:00 Nasal Cannula 2.0 10/27/17 04:00 Nasal Cannula 3.0 10/27/17 03:55 37.2 82 20 141/74 (96) 95 Nasal Cannula 2.0 10/27/17 00:05 Nasal Cannula 3.0 10/26/17 23:55 92 Nasal Cannula 2.5 10/26/17 23:55 37.7 80 17 122/62 (82) 80 Room Air 10/26/17 20:56 37.4 89 24 134/61 (85) 91 Room Air 10/26/17 19:50 Nasal Cannula 3.0 10/26/17 16:26 36.7 85 20 154/71 (98) 94 Room Air 10/26/17 16:00 93 Nasal Cannula 2.0 Physical Exam General Appearance: WD/WN, no apparent distress, + obese Eyes: normal inspection, PERRL, EOMI, sclerae normal ENT: normal ENT inspection, hearing grossly normal, pharynx normal Neck: supple, no adenopathy, thyroid normal, no JVD, no carotid bruits, trachea midline Respiratory/Chest: chest non-tender, normal breath sounds, no respiratory distress, no accessory muscle use, + decreased breath sounds Cardiovascular: regular rate, rhythm, no edema, no gallop, no JVD, no murmur Abdomen: normal bowel sounds, non tender, soft, no organomegaly, no pulsatile mass Extremities: normal range of motion, non-tender, normal inspection, no pedal edema, no calf tenderness, normal capillary refill, pelvis stable, + pertinent finding (Right lower extremity S/P BKA) Neurologic/Psychiatric: iron erector II-XII nml as tested, no motor/sensory deficits, alert, normal mood/affect, oriented x 3 Skin: + pertinent finding (left foot S/P amputation, local in dress,) Lymphatic: no adenopathy Laboratory Results Last 24 Hours Test 10/26/17 16:25 10/26/17 16:57 10/26/17 20:53 10/26/17 23:32 Bedside Glucose 165 mg/dl 234 mg/dl White Blood Count 11.59 K/uL Red Blood Count 3.37 M/uL Hemoglobin 9.7 g/dL Hematocrit 29.4 % Mean Corpuscular Volume 87.2 fL Mean Corpuscular Hemoglobin 28.8 pg Mean Corpuscular Hemoglobin Concent 33.0 g/dl Platelet Count 419 K/uL Mean Platelet Volume 9.4 fL Neutrophils (%) (Auto) 81.2 % Lymphocytes (%) (Auto) 9.7 % Monocytes (%) (Auto) 5.3 % Eosinophils (%) (Auto) 3.1 % Basophils (%) (Auto) 0.3 % Neutrophils # (Auto) 9.42 K/uL Lymphocytes # (Auto) 1.12 K/uL Monocytes # (Auto) 0.61 K/uL Eosinophils # (Auto) 0.36 K/uL Basophils # (Auto) 0.03 K/uL RDW Standard Deviation 44.5 fL RDW Coefficient of Variation 13.8 % Immature Granulocyte % (Auto) 0.4 % Immature Granulocyte # (Auto) 0.05 K/uL Prothrombin Time 11.5 SECONDS Prothromb Time International Ratio 1.1 Activated Partial Thromboplast Time 29.4 SECONDS 28.8 SECONDS Partial Thromboplastin Ratio 1.1 1.1 Test 10/27/17 06:07 10/27/17 06:40 10/27/17 11:11 10/27/17 13:19 White Blood Count 10.02 K/uL Red Blood Count 3.34 M/uL Hemoglobin 9.9 g/dL Hematocrit 29.3 % Mean Corpuscular Volume 87.7 fL Mean Corpuscular Hemoglobin 29.6 pg Mean Corpuscular Hemoglobin Concent 33.8 g/dl RDW Standard Deviation 44.1 fL RDW Coefficient of Variation 13.7 % Platelet Count 422 K/uL Mean Platelet Volume 9.5 fL Activated Partial Thromboplast Time 30.9 SECONDS 29.4 SECONDS Partial Thromboplastin Ratio 1.2 1.1 Sodium Level 139 mmol/L Potassium Level 3.6 mmol/L Chloride Level 103 mmol/L Carbon Dioxide Level 30 mmol/L Anion Gap 6.0 mmol/L Blood Urea Nitrogen 13 mg/dl Creatinine 1.16 mg/dl Est Creatinine Clear Calc Drug Dose 86.0 ml/min Estimated GFR () 74.6 Estimated GFR (Non- 64.3 BUN/Creatinine Ratio 11.3 Random Glucose 172 mg/dl Calcium Level 8.8 mg/dl Magnesium Level 1.7 mg/dl Bedside Glucose 192 mg/dl 279 mg/dl Assessment and Plan 66 y/o M admitted October 21, 2017 because of osteomyelitis and cellulitis of distal LLE Per record, he [facility] with worsening LLE cellulitis and a related foul odor, at the behest of the long-term nursing staff, is a resident of a correctional facility and had last followed up at a wound clinic 10/09. past medical history including HTN, HPL, A flutter, DM, PAD, R BKA, chronic LLE ulcers Left foot osteomyelitis involving the 1st and 4th phalanges with adjacent soft tissue cellulitis. amputation of first and fourth toes 10/24/2017. Postop day 3 Orthopedic on the case, continue regular dressing changes. Cx growing Group B Beta Strep, sensitive to most of antibiotic Possible mild sepsis associated with leukocytosis on October 24, 2017, associated with tachycardia, mild fever 37.6, totally resolved Per sensitivity, can switch vancomycin to oral Bactrim or Clindamycin, for today I will continue IV vancomycin because he is planned to have procedure tomorrow Patient has been on cefepime and vancomycin since admission on October 22, 2017, the length of total antibiotic could be 14 days vascular surgery consulted, plan angiogram, and possible angiography tomorrow, has ordered n.p.o. midnight Hyperglycemia and glycemic control, patient's blood glucose has been range 170s- 270,, optimal control in hospital will be less than 180, because he is going to be on n.p.o., discussed with pharmacist agreed to have patient in insulin drip before and during the procedure tomorrow History of A. fib, was on warfarin at home, currently is on hold, continue on transient heparin drip before tomorrow angiography studies or colonoscopy studies History of A. 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
[2017-10-27] MEDS ORDERED: HEPARIN IV BOLUS 4,500 UNIT in SYRINGE 0 ML IV SCH (15:00)
[2017-10-27 15:44] VITALS: BP 159/71; PULSE 88; TEMP 36.7; O2SAT 95
--- NOTE | 2017-10-27 16:32 | Pharmacy Progress Note ---
Pharmacy Glycemic Short Note 2 Date of Service Oct 27, 2017. OUTPATIENT ANTIDIABETIC REGIMEN: * Humulin 70/30 40 units qAM, 34 units qPM * Metformin 1 gm BID * A1c = 11.5 % 04/22/16 ASSESSMENT: 10/27/17 * Patient received 90 units of insulin over the past 24 hours with suboptimal glycemic control * 45 units of basal insulin * 45 units of bolus insulin * BSGs: 210, 181, 165, 234 * Fasting BSG elevated at 192 mg/dL. I gave an additional 8 units of Lantus this morning (to make total of 28 units, which is equivalent to wt/stress 3). No further increases to basal insulin today since patient will be made NPO at midnight for surgery. * Post prandial BSGs are elevated, therefore I will tighten CF/CR. * Patient is ordered prednisone 50 mg PO q8h x 3 doses prior to OR tomorrow. Due to multiple changing factors that will effect glycemic control over the next 12-24 hours (change to NPO status, surgery, high dose steroids), the patient will be started on an IV insulin infusion at 1700 today for better control. 10/26/17 * Patient received 71 units of insulin on 10/25. Diet advanced this morning. * 35 units of basal insulin * 36 units of bolus insulin * BSGs: 136, 174, 293, 145 * Fasting BSG of 210 mg/dL is above goal. * Basal insulin was decreased 12% yesterday d/t rapid decrease in fasting BSG ( 10/24: 236 -> 10/25: 136). Will return to total of 40 units/day. * Post prandial BSGs are improving. PLAN FOR INPATIENT GLYCEMIC CONTROL: * Hold outpatient oral diabetes medications * Start IV insulin infusion per moderate stress protocol at 1700 today for anticipated steroid induced hyperglycemia * Basal insulin * Continue Lantus 20 units SQ BID tonight * Further Lantus orders to be determined on 10/28 am Thank you.
[2017-10-27] MEDS ORDERED: INSULIN IV INFUSION PROTOCOL SCH (16:45)
[2017-10-27] MEDS ORDERED: VANCOMYCIN TROUGH ONE (17:30)
[2017-10-27] MEDS: INSULIN REGULAR 250 UNITS in SODIUM CHLORIDE 0.9% 250ML 250 ML IV SCH ×2 (17:43→19:09)
[2017-10-27 20:11] VITALS: BP 180/91; PULSE 96; TEMP 36.7; O2SAT 90
[2017-10-27 20:54] LABS: PTT PATIENT 30.3 SECONDS (21.0-31.0)
[2017-10-27] MEDS: LISINOPRIL/HCTZ 20/25MG TAB PO SCH (21:11)
[2017-10-27 21:15] VITALS: BP 161/72
[2017-10-28 03:50] VITALS: BP 154/74; PULSE 70; TEMP 36.6; O2SAT 94
[2017-10-28 05:07] LABS: HEMATOCRIT 30.8 % (42-52); HEMOGLOBIN 10.6 g/dL (14.0-18.0); MEAN CORPUSCULAR HEMOGLOBIN 29.9 pg (25-34); MEAN CORPUSCULAR HGB CONC 34.4 g/dl (32-36); MEAN PLATELET VOLUME 9.3 fL (7.4-10.4); PLATELET COUNT 439 K/uL (130-400); RED CELL DISTRIBUTION WIDTH CV 13.7 % (11.5-14.5); RED CELL DISTRIBUTION WIDTH SD 44.1 fL (36.4-46.3); WHITE BLOOD COUNT 10.19 K/uL (4.8-10.8)
[2017-10-28 05:22] LABS: PTT PATIENT 34.2 SECONDS (21.0-31.0)
[2017-10-28] MEDS ORDERED: HEPARIN IV BOLUS 4,500 UNIT in SYRINGE 0 ML IV ONE (05:45)
[2017-10-28] MEDS: HEPARIN 25,000 UNIT/500ML D5W 500 ML IV SCH (05:53)
[2017-10-28] MEDS ORDERED: SODIUM CHLORIDE 0.9% 1000ML 1,000 ML IV SCH (06:00)
[2017-10-28] MEDS ORDERED: FAMOTIDINE IV INJ 20 MG in DEXTROSE 5% 100ML 100 ML IV ONE (07:30)
[2017-10-28] MEDS ORDERED: FAMOTIDINE IV INJ 20 MG in SYRINGE 3 ML IV SCH (07:30)
[2017-10-28] MEDS ORDERED: DiphenhydrAMINE HCL 50 MG/ML VIAL IV SCH (07:30)
[2017-10-28] MEDS: DILTIAZEM HCL 60 MG TAB PO SCH (07:40)
[2017-10-28] MEDS: INSULIN ASPART 100 UNITS/ML 3 ML PEN SC SCH (08:00)
[2017-10-28] MEDS: INSULIN REGULAR 250 UNITS in SODIUM CHLORIDE 0.9% 250ML 250 ML IV SCH ×3 (08:08→11:08)
[2017-10-28] MEDS ORDERED: INSULIN GLARGINE SOLOSTAR 100 UNITS/ML 3 ML PEN SC SCH (09:00)
--- NOTE | 2017-10-28 09:00 | Progress Note ---
Progress Note Date of Service Oct 28, 2017. Progress Note Pt was scheduled for LLE angio with intervention in OR today by Dr Landis. Pt refusing procedure. Discussed risks of not having procedure, including infection, wound necrosis, sepsis, further amputation, . Also discussed decreased life expectancy for bilateral amputee status if that occurs. Pt remains steadfast in refusal and states he understands the risks he is taking. Conversation witnessed by RN and fdc guards. Advised him to have staff call us if pt changes his mind and is willing to consider. Please call if needed.
[2017-10-28] MEDS: MAGNESIUM OXIDE 400 MG TAB PO SCH (09:44)
[2017-10-28] MEDS: CYANOCOBALAMIN 500 MCG TAB (VIT B-12) PO SCH (09:44)
[2017-10-28] MEDS ORDERED: NURSING VERBAL MED ORDER ONE (09:45)
--- NOTE | 2017-10-28 10:18 | Pharmacy Progress Note ---
Pharmacy Abx Dose Short Note Date of Service Oct 28, 2017. Assessment & Plan Assessment 67 year old male receiving vancomycin for treatment of group B/MSSA growing in the joint fluid. Day # 8 of antimicrobial therapy. Plan Vancomycin * Trough level of 19.5 mcg/mL is therapeutic. * Continue dose of 1500 mg IV every 18 hours * Goal trough level for : 15 to 20 mcg/mL * Trough or random level ordered for:repeat as clinically indicated to check for accumulation Pharmacy will continue to follow and will adjust dose/frequency as necessary. Thank you.
[2017-10-28] MEDS ORDERED: NovoLIN-N (NPH) PER UNIT CHARGE SQ ONE (10:30)
[2017-10-28] MEDS ORDERED: CLIN300C2 PO (10:32)
[2017-10-28] MEDS ORDERED: RXC5 PO (10:32)
--- NOTE | 2017-10-28 10:34 | Discharge Instructions ---
Discharge Instructions Date of Service Oct 28, 2017. Admission Reason for Admission: Anemia; Osteomyelitis Of Ankle/Foot, Left, Acute Discharge Discharge Diagnosis / Problem: diabetic foot infection s/p surgical amputation of toes Discharge Goals Goal(s): Diagnostic testing, Therapeutic intervention Activity Recommendations Activity Limitations: as noted below Lifting Limitations: gradually increase as tolerated . Current Hospital Diet Patient's current hospital diet: Diabetes Type 2 Diet, Low Fiber Diet Discharge Diet Recommended Diet: Diabetes Type 2 Diet Procedures Procedures Performed: Incision and Drainage with Amputation Left 1st and 4th Toes Pending Studies Studies pending at discharge: no Laboratory Results Hemoglobin A1c Test 10/27/17 06:07 Range/Units Estimated Average Glucose 212 mg/dl Hemoglobin A1c 9.0 H 4.5-5.6 % Medical Emergencies . Who to Call and When: Medical Emergencies: If at any time you feel your situation is an emergency, please call 911 immediately. . Non-Emergent Contact Non-Emergency issues call your: Primary Care Provider, Surgeon, Specialist ( wound care center) Call Non-Emergent contact if: temperature is above 101, your pain is unusual for you . . "Provider Documentation" section prepared by Kana Byrd. .
[2017-10-28] MEDS ORDERED: NVLGIPEN SC (11:38)
[2017-10-28 12:00] VITALS: BP 154/74; PULSE 70; TEMP 36.6; O2SAT 94
[2017-10-28] MEDS ORDERED: INSULIN ASPART 100 UNITS/ML 3 ML PEN SC SCH (12:00)
[2017-10-28 12:48] VITALS: Ht 193 cm; Wt 119.4 kg
--- NOTE | 2017-10-28 15:25 | Discharge Summary ---
Discharge Summary Date of Service Oct 28, 2017. Discharge Summary Admission Date: Oct 21, 2017 at 23:00 Discharge Date: Oct 28, 2017 Discharge Disposition: Home Principal Diagnosis: diabetic foot infection, osteomyelitis, amputation of toes 1&4 of left foot Medication Reconciliation New Medications: Clindamycin Hcl (Cleocin) 300 Mg Cap 300 MG PO TID for 10 Days, #30 CAP Insulin Aspart (Novolog Flexpen) 100 Units/Ml Inj 0 UNITS SC PCHS, #1 PEN Oxycodone HCl (Oxycodone HCl) 5 Mg Tab 5 MG PO Q4H PRN for Pain, #10 TAB Continued Medications: Aspirin (Aspirin Ec) 81 Mg Tab 81 MG PO DAILY Cyanocobalamin (Vitamin B-12) 1,000 Mcg Tab 1000 MCG PO DAILY, TAB Diltiazem Hcl (Cardizem) 120 Mg Tab 120 MG PO BID Gemfibrozil (Lopid) 600 Mg Tab 600 MG PO DAILY, TAB Insulin Isophan/Regular (Humulin 70/30) Susp 34 UNITS SC QPM, VIAL Insulin Isophan/Regular (Humulin 70/30) Susp 40 UNITS SC QAM Lisinopril/Hctz (Prinzide 20-25MG) Tab 1 TAB PO HS, TAB Metformin Hcl (Glucophage) 1,000 Mg Tab 1000 MG PO BID, TAB Polyvinyl Alcohol (Artificial Tears) 1.4 % Emily 1 DROP OPL QID PRN for Dryness Warfarin Sodium (Coumadin) 5 Mg Tab 5 MG PO HS, TAB Warfarin Sodium (Coumadin) 3 Mg Tab 3 MG PO HS, TAB Discharge Exam Review of Systems: Constitutional: + weakness, No fever, No chills Respiratory: No cough, No sputum, No shortness of breath Cardiovascular: No chest pain, No orthopnea, No edema Abdomen: No pain, No nausea, No diarrhea Musculoskeletal: No joint pain, No muscle pain, No swelling Psychiatric: + depression symptoms, No anhedonism, No anxiety Physical Exam: General Appearance: WD/WN, + mild distress Eyes: normal inspection, sclerae normal Neck: supple, no JVD Respiratory/Chest: chest non-tender, lungs clear, normal breath sounds Cardiovascular: regular rate, rhythm, no murmur Abdomen / GI: normal bowel sounds, non tender, soft Extremities: + pertinent finding (wounds are closed on left foot, right BKA) Neurologic/Psychiatric: alert, oriented x 3 Skin: normal color, warm/dry, no rash Hospital Course 66 y/o M admitted October 21, 2017 because of osteomyelitis and cellulitis of distal LLE Per record, he presenting from a [facility] with worsening LLE cellulitis and a related foul odor, at the behest of the group home nursing staff, is a resident of a correctional facility and had last followed up at a wound clinic 10/09. past medical history including HTN, HPL, A flutter, DM, PAD, R BKA, chronic LLE ulcers Left foot osteomyelitis involving the 1st and 4th phalanges with adjacent soft tissue cellulitis. amputation of first and fourth toes 10/24/2017. Was noted this am that the pt had refused further vascular workup and wanted to return to [facility]. I did personally speak to Dr Villa at the group home and informed him of the case, he stated that he felt comfortable to care for this pt at their facility despite not having the refused vascular studies. Orthopedic on the case, continue regular dressing changes and wound clinic follow up. Cx growing Group B Beta Strep, sensitive to most of antibiotic Possible mild sepsis associated with leukocytosis on October 24, 2017,resolved and switched to Clindamycin po with the duration determined by wound evaluation. vascular surgery consulted, plan angiogram, and possible angiography but the pt refused Hyperglycemia and glycemic control, patient's blood glucose has been range 170s- 270,, transitioned back to 70/30 with ssi coverage History of A. fib, was on warfarin at home, currently is on hold, pt has refused the Coumadin in the past at the group home but states now he will consider taking if when offered History of A. fib and episode of A. fib continuing lunchroom monitor, continue on Cardizem at home dose Colonoscopy will be considered if anemia persists after infectious issue is treated Total Time Spent: Greater than 30 minutes This includes examination of the patient, discharge planning, medication reconciliation, and communication with other providers. Discharge Instructions Please refer to the electronic Patient Visit Report (Discharge Instructions) for additional information.
--- NOTE | 2017-10-30 06:34 | EDITING REQUIRED CODING QUERY ---
CODING QUERY To promote full compliance with coding requirements relating to patient care, provider participation is requested in all cases of line appliance assembler uncertainty. Please assist us with the question(s) below: Please clarify the meaning of MYNRO. MYNOR is not a valid abbreviation. Thank you. ( xx ) Acute Kidney Injury ( ) Acute Kidney Insufficiency ( ) Other (Specify): Principal Diagnosis: "_that condition established after study, to be chiefly responsible for occasioning the admission of the patient to the hospital for care." Co-Existing Principal Diagnosis: "_when two or more diagnoses equally meet the criteria for principal diagnosis as determined by the circumstances of admission, diagnostic work up, and/or therapy provided, and the Alphabetic Index, Tabular List, or another coding guideline does not provide sequencing direction, any one of the diagnoses may be sequenced first." "When the physician has documented what appears to be a current diagnosis in the body of the record, but has not included the diagnosis in the final diagnostic statement, the physician should be asked whether the diagnosis should be added." (Source Coding [facility] 2 QTR90. p3-4)
== END 2017-10-28 13:35 | DRG 616 ==
LOC: EDBD 19:21 → C.EDB 19:23 → C.MSN 23:00 → UNDOADMIN 23:00 → ENRESERV 23:14 → C.2E 10-24 10:17
PROVIDERS: ADMIT Internal Medicine; ATTEND Internal Medicine
PROC: 0Y6Q0Z0 Detachment at Left 1st Toe, Complete, Open Approach (ICD-10-PCS; principal; 2017-10-24 08:00)
PROC: 0Y6W0Z0 Detachment at Left 4th Toe, Complete, Open Approach (ICD-10-PCS; principal; 2017-10-24 08:00)
DX: E11.621 Type 2 diabetes mellitus with foot ulcer (principal); A41.9 Sepsis, unspecified organism; M86.9 Osteomyelitis, unspecified; L03.116 Cellulitis of left lower limb; K62.5 Hemorrhage of anus and rectum; I48.92 Unspecified atrial flutter; L97.529 Non-pressure chronic ulcer of other part of left foot with unspecified severity; B95.1 Streptococcus, group B, as the cause of diseases classified elsewhere; N17.9 Acute kidney failure, unspecified; D64.9 Anemia, unspecified; I48.91 Unspecified atrial fibrillation; E11.51 Type 2 diabetes mellitus with diabetic peripheral angiopathy without gangrene; E11.65 Type 2 diabetes mellitus with hyperglycemia; I10 Essential (primary) hypertension; E78.5 Hyperlipidemia, unspecified; F12.90 Cannabis use, unspecified, uncomplicated; Z91.14 Patient's other noncompliance with medication regimen; Z89.511 Acquired absence of right leg below knee; Z85.118 Personal history of other malignant neoplasm of bronchus and lung; Z90.2 Acquired absence of lung [part of]; Z86.018 Personal history of other benign neoplasm; Z86.19 Personal history of other infectious and parasitic diseases; Z87.891 Personal history of nicotine dependence; Z90.49 Acquired absence of other specified parts of digestive tract; Z98.890 Other specified postprocedural states; Z86.718 Personal history of other venous thrombosis and embolism; Z79.01 Long term (current) use of anticoagulants; Z79.4 Long term (current) use of insulin; Z79.82 Long term (current) use of aspirin; Z79.899 Other long term (current) drug therapy; Z91.048 Other nonmedicinal substance allergy status

== ENCOUNTER 2017-11-25 09:15 | Emergency (ER) | payer OTHER ==
[~2017-11-25 09:15] MED LIST changes: +CEPH500C PO; -CEPH500C2 PO; +DILT120T8 PO; -DILT240C57 PO; -GLCSR/500 PO; -LSN/2025 PO; +METF-384 PO; +NVLGIPEN SC; -OXYC5TAB PO; +POLY99.0 OPL; +RXC5 PO
[2017-11-25 09:19] VITALS: TEMP 36.9; Ht 193 cm
[2017-11-25] MEDS ORDERED: CLINDAMYCIN IV 900 MG in DEXTROSE 5% 100ML 100 ML IV STA (10:10)
--- NOTE | 2017-11-25 10:36 | DIAGNOSTIC IMAGING REPORT ---
L FOOT MIN 3 VIEWS ROUTINE CLINICAL HISTORY: Left foot infection. Evaluate for osteomyelitis. COMPARISON: 10/21/2017 DISCUSSION: There are postsurgical changes of amputations at the level of the first and fourth metatarsal phalangeal joints. There is gas within the soft tissues distal to the first metatarsal head and adjacent to the second toe phalanges. There are equivocal erosive changes involving the base of the proximal phalanx of the third toe. IMPRESSION: 1. Postsurgical changes of interval amputations 2. Gas within the soft tissues as described above consistent with infection 3. Equivocal erosive changes involving the base of the proximal phalanx of the third toe. Electronically signed by: Leeroy Santos M.D. 11/25/2017 10:35 AM Dictated Date/Time: 11/25/2017 10:32 AM
[2017-11-25 10:42] LABS: BASO % 0.8 %; BASO ABS # 0.04 K/uL (0-0.2); EOS % 9.3 %; EOS ABS # 0.46 K/uL (0-0.5); HEMOGLOBIN 11.1 g/dL (14.0-18.0); IG# 0.02 K/uL (0.00-0.02); LYMPH % 24.7 %; LYMPH ABS # 1.22 K/uL (1.2-3.4); MEAN CELL VOLUME 87.3 fL (80-100); MEAN CORPUSCULAR HEMOGLOBIN 29.4 pg (25-34); MEAN CORPUSCULAR HGB CONC 33.6 g/dl (32-36); MEAN PLATELET VOLUME 9.2 fL (7.4-10.4); MONO % 8.9 %; MONO ABS # 0.44 K/uL (0.11-0.59); NEUT % 55.9 %; NEUT ABS # 2.75 K/uL (1.4-6.5); PLATELET COUNT 270 K/uL (130-400); RED CELL DISTRIBUTION WIDTH CV 15.5 % (11.5-14.5); RED CELL DISTRIBUTION WIDTH SD 50.1 fL (36.4-46.3); WHITE BLOOD COUNT 4.93 K/uL (4.8-10.8)
[2017-11-25 10:51] LABS: INR 2.5 (0.9-1.1); PTT PATIENT 43.6 SECONDS (21.0-31.0)
[2017-11-25 11:02] LABS: ALT/SGPT 15 U/L (12-78); AST/SGOT 11 U/L (15-37); BLOOD UREA NITROGEN 19 mg/dl (7-18); CALCIUM 9.2 mg/dl (8.5-10.1); CARBON DIOXIDE 26 mmol/L (21-32); CREATININE 1.17 mg/dl (0.60-1.40); GLUCOSE 180 mg/dl (70-99); POTASSIUM 4.1 mmol/L (3.5-5.1); SODIUM 139 mmol/L (136-145)
[2017-11-25 11:05] LABS: ALKALINE PHOSPHATASE 96 U/L (45-117); TOTAL PROTEIN 8.1 gm/dl (6.4-8.2)
[2017-11-25] MEDS ORDERED: CLIN300C2 PO (13:14)
--- NOTE | 2017-11-25 13:19 | EMERGENCY ROOM VISIT NOTE ---
History Report prepared by Alpesh: Desmond Brooks Under the Supervision of: Dr. Kacy Villafana M.D. First contact with patient: 09:33 Chief Complaint: FOOT PAIN Stated Complaint: FOOT INFECTION History of Present Illness The patient is a 67 year old male who presents to the Emergency Room with complaints of a worsening left foot infection beginning a few weeks ago. He is incarcerated at [facility]. The patient states that he took the bandage off of his left foot today, and noticed that the area appeared "green". He reports that the area is constantly draining. He has the bandage changed once per day, and states that the wound has been draining for a few weeks. The patient has a history of right leg BKA. He has had two toes amputated from his right foot. He notes that wound-care located an abscess of the area where his big toe used to be recently. The patient recently refused recommended wound vac and arterial bypass surgery, and said that he just wanted his foot amputated. He was found to have osteomyelitis of his foot at that time. Patient states he feels he "does not have a choice at this point." He is on Coumadin. Source of History: patient Onset: A few weeks ago Position: foot (left) Quality: other (infection) Timing: worsening Review of Systems See HPI for pertinent positives & negatives. A total of 10 systems reviewed and were otherwise negative. Past Medical & Surgical Medical Problems: (1) Anemia (2) Atrial flutter (3) Diabetes (4) Hepatitis C (5) High blood pressure (6) Jaundice (7) Lung mass Surgical Problems: (1) Hx of appendectomy (2) Hx of cholecystectomy (3) S/P BKA (below knee amputation) Family History Patient reports no known family medical history. Social History Smoking Status: Former Smoker Alcohol Use: none Drug Use: marijuana Marital Status: single Housing Status: other Occupation Status: other Current/Historical Medications Scheduled Aspirin (Aspirin Ec), 81 MG PO DAILY Clindamycin Hcl (Cleocin), 300 MG PO QID Cyanocobalamin (Vitamin B-12), 1,000 MCG PO DAILY Diltiazem Hcl (Cardizem), 120 MG PO BID Gemfibrozil (Lopid), 600 MG PO DAILY Insulin Isophan/Regular (Humulin 70/30), 34 UNITS SC QPM Insulin Isophan/Regular (Humulin 70/30), 40 UNITS SC QAM Lisinopril/Hctz (Prinzide 20-25MG), 1 TAB PO HS Metformin Hcl (Glucophage), 1,000 MG PO BID Warfarin Sodium (Coumadin), 5 MG PO HS Warfarin Sodium (Coumadin), 3 MG PO HS Scheduled PRN Polyvinyl Alcohol (Artificial Tears), 1 DROP OPL QID PRN for Dryness Allergies Coded Allergies: Povidone Iodine (Verified Allergy, Severe, RASH, 04/27/16) Adhesives (Verified Adverse Reaction, Unknown, RASH, 11/25/17) Physical Exam Vital Signs Date Time Temp Pulse Resp B/P (MAP) Pulse Ox O2 Delivery O2 Flow Rate FiO2 11/25/17 13:40 68 18 155/67 98 11/25/17 12:33 73 16 165/60 97 Room Air 11/25/17 11:34 74 16 121/62 96 Room Air 11/25/17 10:41 72 18 153/65 96 Room Air 11/25/17 09:19 36.9 82 20 126/61 98 Room Air Physical Exam Vital signs reviewed. General: Chronically ill-appearing male, in no significant distress HEENT: No scleral icterus, PERRLA, neck supple. Atraumatic. Cardiovascular: Regular rate and rhythm, no extra sounds. Pulmonary: Clear to auscultation bilaterally, normal work of breathing. Abdomen: Soft, nontender, nondistended, positive bowel sounds. Musculoskeletal: Right BKA. Left lower extremity with significant chronic change of the skin (consistent with PAD). Erythema to the ankle distally. Quarter sized ulceration to the dorsum of the foot. Amputated great toe with a 3 cm triangular open wound. Granulation tissue noted in the wound. No warmth appreciated. Minimal sensation to the foot. Neurologic: Patient awake alert and oriented x 3 Skin: Warm, dry, no rash Medical Decision & Procedures ER Provider Diagnostic Interpretation: Radiology results as stated below per my review and radiologist interpretation: L FOOT MIN 3 VIEWS ROUTINE DISCUSSION: There are postsurgical changes of amputations at the level of the first and fourth metatarsal phalangeal joints. There is gas within the soft tissues distal to the first metatarsal head and adjacent to the second toe phalanges. There are equivocal erosive changes involving the base of the proximal phalanx of the third toe. IMPRESSION: 1. Postsurgical changes of interval amputations 2. Gas within the soft tissues as described above consistent with infection 3. Equivocal erosive changes involving the base of the proximal phalanx of the third toe. Electronically signed by: Leeroy Santos M.D. 11/25/2017 10:35 AM Laboratory Results 11/25/17 10:30 Red Blood Count 3.78, Mean Corpuscular Volume 87.3, Mean Corpuscular Hemoglobin 29.4, Mean Corpuscular Hemoglobin Concent 33.6, Mean Platelet Volume 9.2, Neutrophils (%) (Auto) 55.9, Lymphocytes (%) (Auto) 24.7, Monocytes (%) (Auto) 8.9, Eosinophils (%) (Auto) 9.3, Basophils (%) (Auto) 0.8, Neutrophils # (Auto) 2.75, Lymphocytes # (Auto) 1.22, Monocytes # (Auto) 0.44, Eosinophils # (Auto) 0.46, Basophils # (Auto) 0.04 11/25/17 10:30 Test 11/25/17 10:30 White Blood Count 4.93 K/uL (4.8-10.8) Red Blood Count 3.78 M/uL (4.7-6.1) Hemoglobin 11.1 g/dL (14.0-18.0) Hematocrit 33.0 % (42-52) Mean Corpuscular Volume 87.3 fL (80-100) Mean Corpuscular Hemoglobin 29.4 pg (25-34) Mean Corpuscular Hemoglobin Concent 33.6 g/dl (32-36) Platelet Count 270 K/uL (130-400) Mean Platelet Volume 9.2 fL (7.4-10.4) Neutrophils (%) (Auto) 55.9 % Lymphocytes (%) (Auto) 24.7 % Monocytes (%) (Auto) 8.9 % Eosinophils (%) (Auto) 9.3 % Basophils (%) (Auto) 0.8 % Neutrophils # (Auto) 2.75 K/uL (1.4-6.5) Lymphocytes # (Auto) 1.22 K/uL (1.2-3.4) Monocytes # (Auto) 0.44 K/uL (0.11-0.59) Eosinophils # (Auto) 0.46 K/uL (0-0.5) Basophils # (Auto) 0.04 K/uL (0-0.2) RDW Standard Deviation 50.1 fL (36.4-46.3) RDW Coefficient of Variation 15.5 % (11.5-14.5) Immature Granulocyte % (Auto) 0.4 % Immature Granulocyte # (Auto) 0.02 K/uL (0.00-0.02) Prothrombin Time 26.0 SECONDS (9.0-12.0) Prothromb Time International Ratio 2.5 (0.9-1.1) Activated Partial Thromboplast Time 43.6 SECONDS (21.0-31.0) Partial Thromboplastin Ratio 1.7 Anion Gap 7.0 mmol/L (3-11) Estimated GFR () 73.3 Estimated GFR (Non- 63.2 BUN/Creatinine Ratio 16.4 (10-20) Calcium Level 9.2 mg/dl (8.5-10.1) Total Bilirubin 0.4 mg/dl (0.2-1) Direct Bilirubin < 0.1 mg/dl (0-0.2) Aspartate Amino Transf (AST/SGOT) 11 U/L (15-37) Alanine Aminotransferase (ALT/SGPT) 15 U/L (12-78) Alkaline Phosphatase 96 U/L (45-117) Total Protein 8.1 gm/dl (6.4-8.2) Albumin 3.0 gm/dl (3.4-5.0) Laboratory results per my review. Medications Administered Medications (Trade) Dose Ordered Sig/Eros Route Start Time Stop Time Status Last Admin Dose Admin Clindamycin Phosphate 900 mg/ Dextrose 106 ml @ 100 mls/hr NOW STAT IV 11/25/17 10:10 11/25/17 11:13 DC 11/25/17 10:40 100 MLS/HR ED Course 0953: Past medical records reviewed. The patient was evaluated in room A9B. A complete history and physical examination was performed. 1010: Ordered Clindamycin Phosphate 900 mg/Dextrose 106 mL @ 100 mL/hr IV. 1315: Upon reevaluation, the patient appeared to have improvement of his symptoms. I discussed findings with him. He verbalized agreement of the treatment plan. The patient was discharged home. Medical Decision Differential diagnosis: Etiologies such as osteomyelitis, cellulitis, abscess, MRSA infection, DVT, necrotizing fasciitis, dermatitis, drug eruption, as well as others were entertained. This patient was evaluated and appeared to be in no significant distress. IV access was obtained and laboratory work was drawn. The patient was medicated with IV clindamycin, based on previous culture results. A new culture has been obtained and sent. I did discuss with the patient the recommended treatment of arterial bypass and debridement/wound VAC. He seems amenable to these suggestions at this time. Given his normal white blood cell count and vital signs, I do not feel that this chronic osteomyelitis, PAD, diabetic ulceration requires urgent inpatient admission. Patient was discharged on 300 mg of clindamycin 4 times daily for 7 days. He was referred back to vascular surgery , orthopedic surgery and wound care clinic. Patient will continue his dressings as prescribed until he is reevaluated. He will return to the ER for worsening of symptoms or any medical concerns. Medication Reconcilliation Current Medication List: was personally reviewed by me Blood Pressure Screening Patient's blood pressure: Normal blood pressure Blood pressure disposition: Did not require urgent referral Impression Primary Impression: Cellulitis of left foot Additional Impressions: Chronic foot ulcer PAD (peripheral artery disease) Osteomyelitis Scribe Attestation The scribe's documentation has been prepared under my direction and personally reviewed by me in its entirety. I confirm that the note above accurately reflects all work, treatment, procedures, and medical decision making performed by me. Departure Information Dispostion Home / Self-Care Prescriptions Clindamycin Hcl (CLEOCIN) 300 Mg Cap 300 MG PO QID for 7 Days, #28 CAP Prov: Kacy Villafana M.D. 11/25/17 Referrals Masha PALACIOS (PCP) Forms HOME CARE DOCUMENTATION FORM, IMPORTANT VISIT INFORMATION Patient Instructions My [facility] Additional Instructions Diagnosis: Cellulitis of the left foot, chronic ulcerations, peripheral arterial disease, osteomyelitis. Clindamycin 300 mg 4 times a day for 7 days. Please follow-up with the wound care clinic this week for reevaluation. You will need a wound VAC established. Continue dressing changes as previously prescribed. Contact vascular surgery, Dr. Landis, for outpatient follow-up and consideration of arterial bypass. Follow-up with orthopedic surgery, Dr. Pérez, for further management of the osteomyelitis. Return to the emergency department for worsening of symptoms or any medical concerns. Problem Qualifiers
[2017-11-25 13:40] VITALS: BP 155/67; PULSE 68; O2SAT 98
--- NOTE | 2017-11-27 12:57 | Pharmacy Progress Note ---
ED Pharmacist Culture FollowUp Date of Service: November 27, 2017. Patient was sent back to [facility] with a prescription for clindamycin , which will not cover either the MRSA or the Pseudomonas isolated from his would culture. Called [facility] , spoke with Fredy in the [facility]. Notified of positive culture result and lack of current antibiotic coverage for either organism. Fredy noted that management of the culture result will be completed per [facility] discretion. I faxed the result to [phone], read back #, per Fredy's request. Confirmation received, JobID: [id number].
== END 2017-11-25 13:46 | disposition home or self-care (01) ==
LOC: C.EDB 09:16 → C.EDA 13:46
DX: L03.116 Cellulitis of left lower limb (principal); E11.621 Type 2 diabetes mellitus with foot ulcer; L97.529 Non-pressure chronic ulcer of other part of left foot with unspecified severity; E11.51 Type 2 diabetes mellitus with diabetic peripheral angiopathy without gangrene; E11.69 Type 2 diabetes mellitus with other specified complication; M86.672 Other chronic osteomyelitis, left ankle and foot; Z89.521 Acquired absence of right knee; Z87.891 Personal history of nicotine dependence; Z90.49 Acquired absence of other specified parts of digestive tract; Z90.89 Acquired absence of other organs; Z79.01 Long term (current) use of anticoagulants; Z79.4 Long term (current) use of insulin; Z79.82 Long term (current) use of aspirin; Z79.84 Long term (current) use of oral hypoglycemic drugs; Z91.09 Other allergy status, other than to drugs and biological substances; Z88.8 Allergy status to other drugs, medicaments and biological substances; Z89.412 Acquired absence of left great toe